=== PATIENT | male | born 1940 | race Hispanic/Latino ===

== ENCOUNTER 2017-12-22 12:30 | Emergency (ER) | payer OTHER, MEDICARE ==
[~2017-12-22 12:30] MED LIST: ALLO300T2 PO; AMLO10TA4 PO; ASPI-12 PO; BACL10TA PO; DOXA8TAB81 PO; ESOM40CA PO; LISI40TA4 PO; NAPR-1023 PO; ROSU10TA PO; TAMS-1 PO; TRAM50TA4 PO; [UNRECOGNIZED DRUG - OTHER]
[2017-12-22] MEDS ORDERED: ASPIRIN 325 MG TABLET ONE (12:51)
[2017-12-22 12:56] LABS: BASOPHILS % (AUTO) 0.7 % (0.0-5.0); EOSINOPHILS % (AUTO) 3.2 % (0.0-8.0); HEMATOCRIT 41.3 % (42-54); LYMPHOCYTES % (AUTO) 29.8 % (21.0-51.0); MEAN CORPUSCULAR HEMOGLOBIN 30.1 pg (27.0-33.0); MEAN CORPUSCULAR HGB CONC 33.7 g/dL (32.0-36.0); MEAN CORPUSCULAR VOLUME 89.3 fL (79-99); MONOCYTES % (AUTO) 13.7 % (3.0-13.0); NEUTROPHILS % (AUTO) 52.6 % (40.0-77.0); NUCLEATED RED BLOOD CELLS 0.1 % (0.0-0.19); PLATELET COUNT (AUTO) 135 K/uL (130-400); RED BLOOD CELL COUNT(AUTO) 4.63 MIL/uL (4.50-6.20); RED CELL DISTRIBUTION WIDTH 13.6 % (11.0-15.5); WHITE BLOOD COUNT (AUTO) 4.7 K/uL (4.8-10.8)
[2017-12-22 13:06] LABS: POTASSIUM 4.3 mmol/L (3.5-5.1)
[2017-12-22 13:10] LABS: INR 0.97 (0.85-1.15); PARTIAL THROMBOPLASTIN TIME 27.1 SEC (26.3-35.5); PROTHROMBIN TIME 10.2 SEC (9.6-11.6)
[2017-12-22 13:26] LABS: ALBUMIN 3.6 g/dL (3.5-5.0); BILIRUBIN,TOTAL 0.4 mg/dL (0.2-1.0); CREATINE KINASE MB 1.4 ng/mL (0.5-3.6); CREATININE 0.7 mg/dL (0.5-1.5); TOTAL PROTEIN, SERUM 6.7 g/dL (6.0-8.3)
[2018-04-26] MEDS ORDERED: AEC81 PO (19:00)
[2018-04-26] MEDS ORDERED: HYDR-4064 PO (19:00)
[2018-04-26] MEDS ORDERED: FAMO20TA8 PO (19:00)
[2018-04-26] MEDS ORDERED: BACL10TA PO (19:00)
== END 2017-12-22 18:26 | disposition home or self-care (01) ==
LOC: EDH 12:30
DX: R07.9 Chest pain, unspecified (principal); I25.10 Atherosclerotic heart disease of native coronary artery without angina pectoris; E78.5 Hyperlipidemia, unspecified; I10 Essential (primary) hypertension; Z88.5 Allergy status to narcotic agent; Z88.6 Allergy status to analgesic agent
CPT/HCPCS: 36415; 71045; 80053; 82550; 82553; 83874; 84484; 85025; 85610; 85730; 93005

== ENCOUNTER 2018-01-20 22:07 | Emergency (ER) | payer OTHER, MEDICARE ==
[2018-01-20 22:41] LABS: APPEARANCE,URINE Clear (CLEAR); BILIRUBIN,URINE Negative (NEGATIVE); COLOR,URINE Yellow (YELLOW); GLUCOSE, URINE (UA) Negative (NEGATIVE); KETONES,URINE 15 mg/dL (NEGATIVE); LEUKOCYTE ESTERASE ,URINE Trace (NEGATIVE); NITRATE,URINE Negative (NEGATIVE); OCCULT BLOOD,URINE Negative (NEGATIVE); PH,URINE 5.5 (5.0-8.0); PROTEIN,URINE Negative (NEGATIVE)
[2018-01-20 22:46] LABS: EOSINOPHILS % (AUTO) 3.8 % (0.0-8.0); HEMATOCRIT 42.8 % (42-54); LYMPHOCYTES % (AUTO) 28.5 % (21.0-51.0); MEAN CORPUSCULAR HEMOGLOBIN 30.2 pg (27.0-33.0); MEAN CORPUSCULAR HGB CONC 33.5 g/dL (32.0-36.0); MEAN CORPUSCULAR VOLUME 90.2 fL (79-99); MONOCYTES % (AUTO) 13.2 % (3.0-13.0); NEUTROPHILS % (AUTO) 53.5 % (40.0-77.0); NUCLEATED RED BLOOD CELLS 0.1 % (0.0-0.19); PLATELET COUNT (AUTO) 140 K/uL (130-400); RED BLOOD CELL COUNT(AUTO) 4.75 MIL/uL (4.50-6.20); WHITE BLOOD COUNT (AUTO) 4.9 K/uL (4.8-10.8)
[2018-01-20 22:54] LABS: POTASSIUM 4.1 mmol/L (3.5-5.1)
[2018-01-20 22:55] LABS: BACTERIA,URINE None Seen /HPF (None Seen); RBC,URINE 0-1 /HPF (0-1); SQUAMOUS EPITHELIAL CELL,UR Rare /HPF (0-2); WBC,URINE 0-1 /HPF (0-1)
[2018-01-20 22:58] LABS: ALBUMIN 3.9 g/dL (3.5-5.0); BILIRUBIN,TOTAL 0.6 mg/dL (0.2-1.0); TOTAL PROTEIN, SERUM 7.4 g/dL (6.0-8.3)
[2018-04-26] MEDS ORDERED: HYDR-4064 PO (19:00)
[2018-04-26] MEDS ORDERED: AEC81 PO (19:00)
[2018-04-26] MEDS ORDERED: BACL10TA PO (19:00)
[2018-04-26] MEDS ORDERED: FAMO20TA8 PO (19:00)
== END 2018-01-21 01:51 | disposition home or self-care (01) ==
LOC: EDH 22:07
DX: R10.31 Right lower quadrant pain (principal); R30.0 Dysuria; R19.7 Diarrhea, unspecified; I25.10 Atherosclerotic heart disease of native coronary artery without angina pectoris; E78.5 Hyperlipidemia, unspecified; I10 Essential (primary) hypertension; E11.9 Type 2 diabetes mellitus without complications; Z88.6 Allergy status to analgesic agent; Z98.890 Other specified postprocedural states
CPT/HCPCS: 36415; 74176; 80053; 81001; 85025; 93005

== ENCOUNTER 2018-03-23 21:14 | Emergency (ER) | payer OTHER, MEDICARE ==
[2018-03-23] MEDS ORDERED: HYDROCODONE/ACETAMINOPHEN 7.5/325 MG 15 ML UDCUP ONE (21:43)
[2018-03-23 21:46] LABS: BASOPHILS % (AUTO) 0.6 % (0.0-5.0); EOSINOPHILS % (AUTO) 4.1 % (0.0-8.0); HEMATOCRIT 39.2 % (42-54); MEAN CORPUSCULAR HEMOGLOBIN 31.3 pg (27.0-33.0); MEAN CORPUSCULAR HGB CONC 34.7 g/dL (32.0-36.0); MONOCYTES % (AUTO) 14.9 % (3.0-13.0); NEUTROPHILS % (AUTO) 56.4 % (40.0-77.0); NUCLEATED RED BLOOD CELLS 0.1 % (0.0-0.19); PLATELET COUNT (AUTO) 157 K/uL (130-400); RED BLOOD CELL COUNT(AUTO) 4.36 MIL/uL (4.50-6.20); RED CELL DISTRIBUTION WIDTH 13.8 % (11.0-15.5); WHITE BLOOD COUNT (AUTO) 5.2 K/uL (4.8-10.8)
[2018-03-23] MEDS ORDERED: ASPIRIN 325 MG TABLET ONE (21:50)
[2018-03-23 21:56] LABS: POTASSIUM 4.2 mmol/L (3.5-5.1)
[2018-03-23 21:58] LABS: INR 0.97 (0.85-1.15); PARTIAL THROMBOPLASTIN TIME 26.5 SEC (26.3-35.5); PROTHROMBIN TIME 10.2 SEC (9.6-11.6)
[2018-03-23 22:06] LABS: B-TYPE NATRIURETIC PEPTIDE 71 pg/mL (0-100)
[2018-03-23 22:10] LABS: ALBUMIN 3.7 g/dL (3.5-5.0); BILIRUBIN,TOTAL 0.4 mg/dL (0.2-1.0); CREATINE KINASE MB 2.4 ng/mL (0.5-3.6); TOTAL PROTEIN, SERUM 6.9 g/dL (6.0-8.3)
[2018-04-26] MEDS ORDERED: AEC81 PO (19:00)
[2018-04-26] MEDS ORDERED: BACL10TA PO (19:00)
[2018-04-26] MEDS ORDERED: FAMO20TA8 PO (19:00)
[2018-04-26] MEDS ORDERED: HYDR-4064 PO (19:00)
== END 2018-03-23 23:22 | disposition home or self-care (01) ==
LOC: EDH 21:14
DX: S20.211A Contusion of right front wall of thorax, initial encounter (principal); S80.01XA Contusion of right knee, initial encounter; R10.9 Unspecified abdominal pain; R07.9 Chest pain, unspecified; E11.9 Type 2 diabetes mellitus without complications; E78.5 Hyperlipidemia, unspecified; I10 Essential (primary) hypertension; I25.10 Atherosclerotic heart disease of native coronary artery without angina pectoris; Z88.6 Allergy status to analgesic agent; Z98.890 Other specified postprocedural states; W18.39XA Other fall on same level, initial encounter; Y93.01 Activity, walking, marching and hiking; Y92.89 Other specified places as the place of occurrence of the external cause; Y99.8 Other external cause status
CPT/HCPCS: 36415; 71045; 71250; 73562; 80053; 82550; 82553; 83874; 83880; 84484; 85025; 85610; 85730; 93005; 94761

== ENCOUNTER 2018-07-22 08:52 | Emergency (ER) | payer OTHER, MEDICARE ==
[~2018-07-22 08:52] MED LIST changes: +AEC81 PO; -AMLO10TA4 PO; -ASPI-12 PO; +FAMO20TA8 PO; +HYDR-4064 PO; -ROSU10TA PO; -TAMS-1 PO; -TRAM50TA4 PO; -[UNRECOGNIZED DRUG - OTHER]
[2018-07-22] MEDS ORDERED: ACETAMINOPHEN EXTRA STRENGTH 500 MG TABLET ONE (09:51)
== END 2018-07-22 10:03 | disposition home or self-care (01) ==
LOC: EDH 08:52
DX: S63.592A Other specified sprain of left wrist, initial encounter (principal); I25.10 Atherosclerotic heart disease of native coronary artery without angina pectoris; E11.9 Type 2 diabetes mellitus without complications; E78.5 Hyperlipidemia, unspecified; I10 Essential (primary) hypertension; Z98.890 Other specified postprocedural states; Z88.6 Allergy status to analgesic agent; W18.39XA Other fall on same level, initial encounter; Y93.89 Activity, other specified; Y92.89 Other specified places as the place of occurrence of the external cause; Y99.8 Other external cause status
CPT/HCPCS: 73110

== ENCOUNTER → 2018-09-09 | Outpatient (CLI) | payer OTHER, MEDICARE | END | disposition home or self-care (01) | LOC: RAH 12:07 | PROVIDERS: ATTEND Internal Medicine | DX: M41.85 Other forms of scoliosis, thoracolumbar region (principal) | CPT/HCPCS: 72100 ==

== ENCOUNTER → 2018-09-12 | Outpatient (CLI) | payer OTHER, MEDICARE | END | disposition home or self-care (01) | LOC: SHCH 07:51 | PROVIDERS: ATTEND Internal Medicine Cardiovascular Disease | DX: I35.1 Nonrheumatic aortic (valve) insufficiency (principal); I25.10 Atherosclerotic heart disease of native coronary artery without angina pectoris | CPT/HCPCS: 93306 ==

== ENCOUNTER 2018-10-28 10:16 | Emergency (ER) | payer OTHER, MEDICARE ==
[2018-10-28] MEDS ORDERED: KETOROLAC TROMETHAMINE 30MG/ML ONE (10:47)
[2018-10-28 10:48] LABS: BASOPHILS % (AUTO) 0.8 % (0.0-5.0); EOSINOPHILS % (AUTO) 2.5 % (0.0-8.0); HEMATOCRIT 41.5 % (42-54); LYMPHOCYTES % (AUTO) 23.1 % (21.0-51.0); MEAN CORPUSCULAR HEMOGLOBIN 29.7 pg (27.0-33.0); MEAN CORPUSCULAR HGB CONC 32.9 g/dL (32.0-36.0); MEAN CORPUSCULAR VOLUME 90.1 fL (79-99); MONOCYTES % (AUTO) 10.6 % (3.0-13.0); NUCLEATED RED BLOOD CELLS 0.1 % (0.0-0.19); PLATELET COUNT (AUTO) 124 K/uL (130-400); RED CELL DISTRIBUTION WIDTH 14.3 % (11.0-15.5); WHITE BLOOD COUNT (AUTO) 4.8 K/uL (4.8-10.8)
[2018-10-28 10:57] LABS: CREATININE 0.9 mg/dL (0.5-1.5); POTASSIUM 3.9 mmol/L (3.5-5.1)
[2018-10-28 10:58] LABS: ALBUMIN 3.2 g/dL (3.5-5.0); BILIRUBIN,TOTAL 0.6 mg/dL (0.2-1.0); TOTAL PROTEIN, SERUM 6.4 g/dL (6.0-8.3)
[2018-10-28 11:39] LABS: INR 0.96 (0.85-1.15); PARTIAL THROMBOPLASTIN TIME 29.5 SEC (26.3-35.5); PROTHROMBIN TIME 10.1 SEC (9.6-11.6)
== END 2018-10-28 13:06 | disposition home or self-care (01) ==
LOC: EDH 10:16
DX: M25.552 Pain in left hip (principal); I25.10 Atherosclerotic heart disease of native coronary artery without angina pectoris; E11.9 Type 2 diabetes mellitus without complications; E78.5 Hyperlipidemia, unspecified; I10 Essential (primary) hypertension; Z88.6 Allergy status to analgesic agent; Z88.5 Allergy status to narcotic agent
CPT/HCPCS: 36415; 72131; 73700; 80053; 84484; 85025; 85610; 85730; 93005; 96374; 99284; J1885

== ENCOUNTER 2019-02-14 07:41 | Day surgery (SDC) | payer OTHER, MEDICARE ==
[~2019-02-14] VITALS: Ht 165.1 cm; Wt 95.3 kg
[2019-02-14] MEDS ORDERED: SODIUM CHLORIDE 0.9% 1000ML 1,000 ML IV ONE (08:06)
[2019-02-14 08:29] VITALS: BP 126/65
[2019-02-14] MEDS ORDERED: FINA5TAB41 PO (08:38)
[2019-02-14] MEDS ORDERED: ROSU20TA30 PO (08:38)
[2019-02-14] MEDS ORDERED: SERT50TA12 PO (08:38)
[2019-02-14] MEDS ORDERED: HYDR12.530 PO (08:38)
[2019-02-14] MEDS ORDERED: ACET325C3 PO (08:38)
[2019-02-14] MEDS ORDERED: ROSU10TA27 PO (08:38)
[2019-02-14] MEDS ORDERED: PROPOFOL 10 MG/ML 20ML VIAL IV ONE (08:55)
[2019-02-14] MEDS ORDERED: LIDOCAINE HCL 1% 20 ML VIAL ONE (08:55)
[2019-02-14 09:04] VITALS: BP 100/73
[2019-02-14 09:09] VITALS: BP 96/48
[2019-02-14 09:14] VITALS: BP 109/46
[2019-02-14 09:20] VITALS: BP 107/55
[2019-02-14 09:30] VITALS: BP 134/83
== END 2019-02-14 09:48 | disposition home or self-care (01) ==
LOC: ENDO 07:41 → DAH 07:41 → ENDO 09:48
PROVIDERS: ATTEND Internal Medicine Gastroenterology
DX: K29.50 Unspecified chronic gastritis without bleeding (principal); K44.9 Diaphragmatic hernia without obstruction or gangrene; Z68.34 Body mass index [BMI] 34.0-34.9, adult; I10 Essential (primary) hypertension; E11.9 Type 2 diabetes mellitus without complications; F32.9 Major depressive disorder, single episode, unspecified; K21.9 Gastro-esophageal reflux disease without esophagitis; M81.0 Age-related osteoporosis without current pathological fracture; E78.5 Hyperlipidemia, unspecified; Z98.890 Other specified postprocedural states; Z95.1 Presence of aortocoronary bypass graft; Z83.3 Family history of diabetes mellitus; Z82.49 Family history of ischemic heart disease and other diseases of the circulatory system; Z88.8 Allergy status to other drugs, medicaments and biological substances; I44.5 Left posterior fascicular block
CPT/HCPCS: 43235; 82948 ×2; 93005; A4606; J2704; J7030

== ENCOUNTER → 2019-02-28 | Outpatient (CLI) | payer OTHER, MEDICARE ==
[~2019-02-28] MED LIST changes: +ACET325C3 PO; -FAMO20TA8 PO; +FINA5TAB41 PO; -HYDR-4064 PO; +HYDR12.530 PO; +ROSU10TA27 PO; +ROSU20TA30 PO; +SERT50TA12 PO
== END | disposition home or self-care (01) ==
LOC: RAH 08:03
PROVIDERS: ATTEND Internal Medicine Gastroenterology
DX: K21.9 Gastro-esophageal reflux disease without esophagitis (principal); K44.9 Diaphragmatic hernia without obstruction or gangrene; K57.10 Diverticulosis of small intestine without perforation or abscess without bleeding
CPT/HCPCS: 74240

== ENCOUNTER 2019-03-01 20:36 | Observation (INO) | payer OTHER, MEDICARE ==
[~2019-03-01] VITALS: Ht 162.6 cm; Wt 95.0 kg
[2019-03-01 21:16] LABS: BASOPHILS % (AUTO) 0.7 % (0.0-5.0); HEMATOCRIT 40.9 % (42-54); LYMPHOCYTES % (AUTO) 34.3 % (21.0-51.0); MEAN CORPUSCULAR HEMOGLOBIN 30.1 pg (27.0-33.0); MEAN CORPUSCULAR VOLUME 91.4 fL (79-99); PLATELET COUNT (AUTO) 126 K/uL (130-400); RED BLOOD CELL COUNT(AUTO) 4.47 MIL/uL (4.50-6.20); RED CELL DISTRIBUTION WIDTH 13.8 % (11.0-15.5); WHITE BLOOD COUNT (AUTO) 4.4 K/uL (4.8-10.8)
[2019-03-01 21:25] LABS: CREATININE 1.1 mg/dL (0.5-1.5)
[2019-03-01 21:29] LABS: ALBUMIN 3.6 g/dL (3.5-5.0); BILIRUBIN,TOTAL 0.5 mg/dL (0.2-1.0); TOTAL PROTEIN, SERUM 6.6 g/dL (6.0-8.3)
[2019-03-01 21:54] LABS: APPEARANCE,URINE Clear (CLEAR); BILIRUBIN,URINE Negative (NEGATIVE); COLOR,URINE Yellow (YELLOW); GLUCOSE, URINE (UA) Negative (NEGATIVE); KETONES,URINE Negative (NEGATIVE); LEUKOCYTE ESTERASE ,URINE Trace (NEGATIVE); NITRATE,URINE Negative (NEGATIVE); OCCULT BLOOD,URINE Negative (NEGATIVE); PROTEIN,URINE Negative (NEGATIVE)
[2019-03-01 22:00] LABS: BACTERIA,URINE Rare /HPF (None Seen); MUCUS,URINE Few LPF (None Seen); RBC,URINE None Seen /HPF (0-1); SQUAMOUS EPITHELIAL CELL,UR None Seen /HPF (0-2); WBC,URINE 0-1 /HPF (0-1)
[2019-03-02 03:10] VITALS: BP 148/66
--- NOTE | 2019-03-02 03:10 | NUR ---
ADMISSION NOTE: Admitted to floor via wheelchair, fully awake and responsive. Able to walk only for a short distance from bed to W/C or W/C to toilet. Oriented to room and use of call light. Policies and procedures explained and verbalized understanding. Placed in bed according to patient's comfort. Assessment done. VS checked and recorded. ( See flow chart) Plan of care initiated. Hooked to telemetry with result of Sinus Jorge, BBB 49 bpm. Home meds to bring by the daughter later this morning according to ER staff. Feels discomfort at his lower back , but tolerable. Monitored and kept watched for any unusualities. Needs attended and cared for. Endorsed to AM nurse accordingly.
[2019-03-02 03:15] LABS: CREATINE KINASE, TOTAL 130 U/L (21-232); MYOGLOBIN 50 ng/mL (10-92); TROPONIN I < 0.04 ng/mL (0.00-0.06)
[2019-03-02 05:33] LABS: HEMATOCRIT 39.8 % (42-54); MEAN CORPUSCULAR HEMOGLOBIN 30.8 pg (27.0-33.0); MEAN CORPUSCULAR HGB CONC 33.5 g/dL (32.0-36.0); MEAN CORPUSCULAR VOLUME 91.8 fL (79-99); PLATELET COUNT (AUTO) 113 K/uL (130-400); RED BLOOD CELL COUNT(AUTO) 4.34 MIL/uL (4.50-6.20); RED CELL DISTRIBUTION WIDTH 13.9 % (11.0-15.5); WHITE BLOOD COUNT (AUTO) 4.2 K/uL (4.8-10.8)
[2019-03-02 06:03] LABS: ALANINE AMINOTRANSFERASE 32 U/L (12-78); ALBUMIN 3.4 g/dL (3.5-5.0); ASPARTATE AMINOTRANSFERASE 28 U/L (10-37); BILIRUBIN,TOTAL 0.5 mg/dL (0.2-1.0); CARBON DIOXIDE 27 mmol/L (21-32); CHLORIDE 109 mmol/L (101-111); CREATINE KINASE, TOTAL 131 U/L (21-232); GLOMERULAR FILTR. RATE CALC 76 mL/min (>60); GLUCOSE,RANDOM 108 mg/dL (70-105); MYOGLOBIN 66 ng/mL (10-92); POTASSIUM 3.7 mmol/L (3.5-5.1); SODIUM SERUM 143 mmol/L (136-145); TOTAL PROTEIN, SERUM 6.2 g/dL (6.0-8.3); TROPONIN I < 0.04 ng/mL (0.00-0.06); UREA NITROGEN, BLOOD 15 mg/dL (7-18)
[2019-03-02 07:33] VITALS: BP 140/72
[2019-03-02 09:58] LABS: CREATINE KINASE, TOTAL 133 U/L (21-232); MYOGLOBIN 59 ng/mL (10-92); TROPONIN I < 0.04 ng/mL (0.00-0.06)
[2019-03-02 11:20] VITALS: BP 132/73
--- NOTE | 2019-03-02 13:21 | NUR ---
DCP CM met with pt discussed dc plans. Pt is independent prior to admission, lives at home with daughter. Has a cane. Denies any other equipments/services. Pt feels safe to go back home, daughter able to assist with transportation and needs. Offered possible short term rehab, pt declined, prefers to go back home. DC plan to home once stable. CM to cont to follow up. Addendum: 03/02/19 at 1322 by CONSTANTINO HELLER LVN CM Amended: Links added.
[2019-03-02] MEDS ORDERED: ACETAMINOPHEN 325 MG TAB PO PRN (15:45)
[2019-03-02] MEDS ORDERED: ACETAMINOPHEN 325 MG TAB ONE (15:45)
--- NOTE | 2019-03-02 16:51 | NUR ---
DISCHARGE INSTRUCTIONS GIVEN. IV DISCONTINUED WITH INNER CANNULA INTACT. INSTRUCTED DAUGHTER AND PATIENT TO FOLLOW UP WITH DR. BATRES TOMORROW AT OFFICE. ALL QUESTIONS ANSWERED.
== END 2019-03-02 16:35 | disposition home or self-care (01) ==
LOC: EDH 20:36 → EDHIP 03-02 00:30 → 3BH 03-02 02:43
PROVIDERS: ADMIT Internal Medicine; ATTEND Internal Medicine
DX: R55 Syncope and collapse (principal); R00.1 Bradycardia, unspecified; M54.2 Cervicalgia; G89.29 Other chronic pain; E11.9 Type 2 diabetes mellitus without complications; E78.5 Hyperlipidemia, unspecified; I10 Essential (primary) hypertension; I25.10 Atherosclerotic heart disease of native coronary artery without angina pectoris; Z95.1 Presence of aortocoronary bypass graft
CPT/HCPCS: 36415 ×2; 70450; 71045; 72125; 80053 ×2; 81001; 82550 ×3; 82948 ×2; 83874 ×3; 84484 ×4; 85025; 85027; 93005; 99284; G0378 ×16

== ENCOUNTER 2019-08-16 13:02 | Emergency (ER) | payer OTHER, MEDICARE ==
[2019-08-16 13:19] LABS: BASOPHILS % (AUTO) 0.6 % (0.0-5.0); EOSINOPHILS % (AUTO) 1.5 % (0.0-8.0); HEMATOCRIT 44.2 % (42-54); MEAN CORPUSCULAR HEMOGLOBIN 30.8 pg (27.0-33.0); MEAN CORPUSCULAR HGB CONC 33.7 g/dL (32.0-36.0); MEAN CORPUSCULAR VOLUME 91.7 fL (79-99); MONOCYTES % (AUTO) 10.3 % (3.0-13.0); NEUTROPHILS % (AUTO) 59.6 % (40.0-77.0); PLATELET COUNT (AUTO) 128 K/uL (130-400); RED BLOOD CELL COUNT(AUTO) 4.82 MIL/uL (4.50-6.20); RED CELL DISTRIBUTION WIDTH 13.6 % (11.0-15.5); WHITE BLOOD COUNT (AUTO) 4.9 K/uL (4.8-10.8)
[2019-08-16 13:36] LABS: CREATININE 1.1 mg/dL (0.5-1.5); POTASSIUM 4.1 mmol/L (3.5-5.1)
[2019-08-16 13:41] LABS: ALBUMIN 4.1 g/dL (3.5-5.0); BILIRUBIN,TOTAL 0.7 mg/dL (0.2-1.0); TOTAL PROTEIN, SERUM 7.7 g/dL (6.0-8.3)
[2019-08-16] MEDS ORDERED: MECLIZINE HCL 25 MG TABLET ONE (13:54)
[2019-08-16] MEDS ORDERED: SODIUM CHLORIDE 0.9% 1000ML 1,000 ML IV ONE (13:54)
== END 2019-08-16 16:12 | disposition home or self-care (01) ==
LOC: EDH 13:02
DX: R42 Dizziness and giddiness (principal); R53.1 Weakness; E78.5 Hyperlipidemia, unspecified; I10 Essential (primary) hypertension; I25.10 Atherosclerotic heart disease of native coronary artery without angina pectoris; Z95.1 Presence of aortocoronary bypass graft; Z88.6 Allergy status to analgesic agent; Z87.891 Personal history of nicotine dependence; Z98.890 Other specified postprocedural states
CPT/HCPCS: 36415; 70450; 73221; 80053; 82948; 84484; 85025; 93005; 96360; 99285; J7030

== ENCOUNTER → 2019-08-16 | Outpatient (CLI) | payer OTHER, MEDICARE ==
[~2019-08-16] MED LIST changes: -ROSU10TA27 PO; +ROSU10TA28 PO; -ROSU20TA30 PO; +ROSU20TA31 PO
== END | disposition home or self-care (01) ==
LOC: RAH 10:40
PROVIDERS: ATTEND Orthopaedic Surgery
DX: M75.102 Unspecified rotator cuff tear or rupture of left shoulder, not specified as traumatic (principal); M19.012 Primary osteoarthritis, left shoulder; M25.412 Effusion, left shoulder; M75.42 Impingement syndrome of left shoulder
CPT/HCPCS: 73221

== ENCOUNTER 2022-01-11 11:42 | Emergency (ER) | payer OTHER, MEDICARE ==
[~2022-01-11] VITALS: Ht 162.6 cm; Wt 93.9 kg
[~2022-01-11 11:42] MED LIST changes: -LISI40TA4 PO; +LISI40TA9 PO; +SERT-439 PO; -SERT50TA12 PO
[2022-01-11 12:01] VITALS: BP 102/54
[2022-01-11 12:22] LABS: BASOPHILS % (AUTO) 0.4 % (0.0-5.0); EOSINOPHILS % (AUTO) 0.2 % (0.0-8.0); MEAN CORPUSCULAR HEMOGLOBIN 29.9 pg (27.0-33.0); MEAN CORPUSCULAR HGB CONC 32.8 g/dL (32.0-36.0); MEAN CORPUSCULAR VOLUME 91.1 fL (79-99); MONOCYTES % (AUTO) 8.2 % (3.0-13.0); NEUTROPHILS % (AUTO) 78.8 % (40.0-77.0); PLATELET COUNT (AUTO) 130 K/uL (130-400); RED BLOOD CELL COUNT(AUTO) 5.05 MIL/uL (4.50-6.20); RED CELL DISTRIBUTION WIDTH 13.5 % (11.0-15.5); WHITE BLOOD COUNT (AUTO) 5.5 K/uL (4.8-10.8)
[2022-01-11 12:30] LABS: ALBUMIN 3.7 g/dL (3.5-5.0); BILIRUBIN,TOTAL 0.8 mg/dL (0.2-1.0)
[2022-01-11] MEDS ORDERED: DiphenhydrAMINE HCL 50 MG/ML VIAL IV ONE (12:30)
[2022-01-11] MEDS ORDERED: 0.9%NACL 1000ML 1,000 ML IV ONE (12:30)
[2022-01-11] MEDS ORDERED: METOCLOPRAMIDE 10 MG/2 ML VIAL IVP ONE (12:30)
[2022-01-11] MEDS ORDERED: DiphenhydrAMINE HCL 50 MG/ML VIAL ONE (13:56)
[2022-01-11] MEDS ORDERED: METOCLOPRAMIDE 10 MG/2 ML VIAL ONE (13:56)
[2022-01-11] MEDS ORDERED: AMOX1TAB16 PO (14:16)
== END 2022-01-11 14:30 | disposition home or self-care (01) ==
LOC: EDH 11:42
DX: J01.30 Acute sphenoidal sinusitis, unspecified (principal); Z20.822 Contact with and (suspected) exposure to COVID-19; E11.9 Type 2 diabetes mellitus without complications; E78.00 Pure hypercholesterolemia, unspecified; I10 Essential (primary) hypertension; Z88.6 Allergy status to analgesic agent; Z88.5 Allergy status to narcotic agent; Z79.899 Other long term (current) drug therapy; Z79.82 Long term (current) use of aspirin; Z98.890 Other specified postprocedural states
CPT/HCPCS: 36415; 70450; 80053; 84484; 85025; 85651; 87635; 87804 ×2; 93005; 96361; 96374; 96375; 99285; C9803; J1200; J2765; J7030

== ENCOUNTER 2022-07-20 16:21 | Emergency (ER) | payer OTHER, MEDICARE ==
[~2022-07-20] VITALS: Ht 162.6 cm; Wt 93.0 kg
[~2022-07-20 16:21] MED LIST changes: +AMOX1TAB16 PO
[2022-07-20 17:28] LABS: BASOPHILS % (AUTO) 0.4 % (0.0-5.0); EOSINOPHILS % (AUTO) 1.1 % (0.0-8.0); HEMATOCRIT 44.3 % (42-54); LYMPHOCYTES % (AUTO) 15.6 % (21.0-51.0); MEAN CORPUSCULAR HEMOGLOBIN 30.8 pg (27.0-33.0); MEAN CORPUSCULAR HGB CONC 33.4 g/dL (32.0-36.0); MEAN CORPUSCULAR VOLUME 92.3 fL (79-99); MONOCYTES % (AUTO) 13.3 % (3.0-13.0); NEUTROPHILS % (AUTO) 69.4 % (40.0-77.0); PLATELET COUNT (AUTO) 133 K/uL (130-400); RED CELL DISTRIBUTION WIDTH 13.3 % (11.0-15.5); WHITE BLOOD COUNT (AUTO) 5.7 K/uL (4.8-10.8)
[2022-07-20 17:35] LABS: CREATININE 1.2 mg/dL (0.5-1.5); POTASSIUM 4.2 mmol/L (3.5-5.1)
[2022-07-20 17:42] LABS: TOTAL PROTEIN, SERUM 7.4 g/dL (6.0-8.3)
[2022-07-20 19:32] VITALS: BP 149/73
[2022-07-20] MEDS ORDERED: KETOROLAC 15MG/ML VIAL (15MG/ML) IV ONE (20:00)
[2022-07-20 20:21] LABS: APPEARANCE,URINE CLEAR (CLEAR); BILIRUBIN,URINE NEGATIVE (NEGATIVE); COLOR,URINE YELLOW (YELLOW); GLUCOSE, URINE (UA) NEGATIVE (NEGATIVE); KETONES,URINE 10 mg/dL (NEGATIVE); LEUKOCYTE ESTERASE ,URINE NEGATIVE Leu/uL (NEGATIVE); NITRATE,URINE NEGATIVE (NEGATIVE); OCCULT BLOOD,URINE NEGATIVE (NEGATIVE); PH,URINE 5.5 (5.0-8.0); PROTEIN,URINE 30 mg/dL (NEGATIVE); UROBILINOGEN,URINE 0.2 mg/dL (0.2-1.0)
[2022-07-20 21:00] LABS: BACTERIA,URINE RARE /HPF (None Seen); MUCUS,URINE MOD LPF (None Seen); WBC,URINE 0-1 /HPF (0-1)
[2022-07-20] MEDS ORDERED: TIZA2CAP PO (21:29)
[2022-07-20] MEDS ORDERED: CYCLOBENZAPRINE HCL 10 MG TABLET PO ONE (21:30)
[2022-07-20] MEDS ORDERED: CYCLOBENZAPRINE HCL 10 MG TABLET ONE (21:36)
== END 2022-07-20 21:44 | disposition home or self-care (01) ==
LOC: EDH 16:21
DX: S16.1XXA Strain of muscle, fascia and tendon at neck level, initial encounter (principal); Z20.822 Contact with and (suspected) exposure to COVID-19; E11.9 Type 2 diabetes mellitus without complications; E78.00 Pure hypercholesterolemia, unspecified; I10 Essential (primary) hypertension; Z88.6 Allergy status to analgesic agent; Z88.5 Allergy status to narcotic agent; Z79.899 Other long term (current) drug therapy; Z79.82 Long term (current) use of aspirin; Z98.890 Other specified postprocedural states; X58.XXXA Exposure to other specified factors, initial encounter; Y93.89 Activity, other specified; Y92.89 Other specified places as the place of occurrence of the external cause; Y99.8 Other external cause status
CPT/HCPCS: 99285; 96374; 70450; 71045; 87635; 84484; 80053; 85025; 87804 ×2; 81001; 36415; 93005 ×2; C9803; J1885

== ENCOUNTER → 2023-01-13 | Outpatient (CLI) | payer OTHER, MEDICARE ==
[~2023-01-13] MED LIST changes: +TIZA2CAP PO
[2023-01-13 12:35] LABS: BASOPHILS % (AUTO) 0.6 % (0.0-5.0); EOSINOPHILS % (AUTO) 2.7 % (0.0-8.0); HEMATOCRIT 46.9 % (42-54); LYMPHOCYTES % (AUTO) 19.6 % (21.0-51.0); MEAN CORPUSCULAR HEMOGLOBIN 30.3 pg (27.0-33.0); MEAN CORPUSCULAR VOLUME 91.8 fL (79-99); MONOCYTES % (AUTO) 11.9 % (3.0-13.0); NEUTROPHILS % (AUTO) 64.9 % (40.0-77.0); PLATELET COUNT (AUTO) 128 K/uL (130-400); RED BLOOD CELL COUNT(AUTO) 5.11 MIL/uL (4.50-6.20); RED CELL DISTRIBUTION WIDTH 13.6 % (11.0-15.5); WHITE BLOOD COUNT (AUTO) 6.6 K/uL (4.8-10.8)
[2023-01-13 13:20] LABS: CREATININE 1.4 mg/dL (0.5-1.5); T4 (THYROXINE) 8.6 ug/dL (4.7-13.3); THYROID STIMULATING HORMONE 2.93 uIU/mL (0.36-3.74)
== END | disposition home or self-care (01) ==
LOC: LAB 10:15
PROVIDERS: ATTEND Internal Medicine Cardiovascular Disease
DX: I10 Essential (primary) hypertension (principal); I25.10 Atherosclerotic heart disease of native coronary artery without angina pectoris; E78.5 Hyperlipidemia, unspecified
CPT/HCPCS: 36415; 80048; 83735; 83880; 84436; 84443; 84479; 85025

== ENCOUNTER → 2023-01-29 | Outpatient (CLI) | payer OTHER, MEDICARE | END | disposition home or self-care (01) | LOC: SLP 19:57 | PROVIDERS: ATTEND Internal Medicine Cardiovascular Disease | DX: G47.33 Obstructive sleep apnea (adult) (pediatric) (principal) | CPT/HCPCS: 95810 ==

== ENCOUNTER → 2023-02-16 | Outpatient (CLI) | payer OTHER, MEDICARE | END | disposition home or self-care (01) | LOC: SLP 20:16 | PROVIDERS: ATTEND Internal Medicine Cardiovascular Disease | DX: G47.33 Obstructive sleep apnea (adult) (pediatric) (principal) | CPT/HCPCS: 95811 ==

== ENCOUNTER → 2023-11-25 | Outpatient (CLI) | payer OTHER, MEDICARE ==
[~2023-11-25] MED LIST changes: -AMOX1TAB16 PO; -BACL10TA PO; +BACL5TAB PO; +CARAL PO; -ESOM40CA PO; +FURO20TA4 PO; -HYDR12.530 PO; -LISI40TA9 PO; +MAGN120C3 PO; +OMEP40CA21 PO; +POTA10CA85 PO; -ROSU10TA28 PO; -ROSU20TA31 PO; +ROSU20TA73 PO; -TIZA2CAP PO
== END | disposition home or self-care (01) ==
LOC: RAH 09:07
PROVIDERS: ATTEND Surgery
DX: K21.9 Gastro-esophageal reflux disease without esophagitis (principal); K44.9 Diaphragmatic hernia without obstruction or gangrene
CPT/HCPCS: 36415; 74240; 82565; 84520

== ENCOUNTER → 2023-11-30 | Outpatient (CLI) | payer OTHER, MEDICARE ==
[~2023-11-30] MED LIST changes: +IOHEXOL 350 MG/ML 100ML INFUS..BTL IV ONE
== END | disposition home or self-care (01) ==
LOC: RAH 08:37
PROVIDERS: ATTEND Surgery
DX: K57.30 Diverticulosis of large intestine without perforation or abscess without bleeding (principal); K21.9 Gastro-esophageal reflux disease without esophagitis; K44.9 Diaphragmatic hernia without obstruction or gangrene; Z90.49 Acquired absence of other specified parts of digestive tract
CPT/HCPCS: 74177; Q9967

== ENCOUNTER → 2024-01-12 | Outpatient (CLI) | payer OTHER, MEDICARE ==
[~2024-01-12] MED LIST changes: +FAMO40TA7 PO; -IOHEXOL 350 MG/ML 100ML INFUS..BTL IV ONE; +LISI10TA24 PO; +MAGNESIUM PO; +NITR100C PO; +PANT40TA54 PO; +POTASSIUM PO; +RANO500T6 PO
== END | disposition home or self-care (01) ==
LOC: SHCH 13:15
PROVIDERS: ATTEND Internal Medicine Cardiovascular Disease
DX: I35.1 Nonrheumatic aortic (valve) insufficiency (principal); I49.3 Ventricular premature depolarization; I95.2 Hypotension due to drugs
CPT/HCPCS: 93306

== ENCOUNTER 2024-01-25 05:38 | Observation (INO) | payer OTHER, MEDICARE ==
[2024-01-18 13:37] LABS: BASOPHILS # (AUTO) 0.03 K/uL (0.00-0.20); BASOPHILS % (AUTO) 0.7 % (0.0-5.0); EOSINOPHILS # (AUTO) 0.17 K/uL (0.00-0.70); EOSINOPHILS % (AUTO) 3.8 % (0.0-8.0); HEMATOCRIT 47.2 % (42-54); IMMATURE GRANULOCYTE ABSOLUTE 0.01 K/uL (0-1); LYMPHOCYTES # (AUTO) 1.2 K/uL (1.0-4.8); LYMPHOCYTES % (AUTO) 27.1 % (21.0-51.0); MEAN CORPUSCULAR HGB CONC 32.4 g/dL (32.0-36.0); MEAN CORPUSCULAR VOLUME 95.7 fL (79-99); MONOCYTES # (AUTO) 0.6 K/uL (0.1-1.0); MONOCYTES % (AUTO) 12.3 % (3.0-13.0); NEUTROPHILS # (AUTO) 2.5 K/uL (1.8-7.7); NEUTROPHILS % (AUTO) 55.9 % (40.0-77.0); PLATELET COUNT (AUTO) 134 K/uL (130-400); RED BLOOD CELL COUNT(AUTO) 4.93 MIL/uL (4.50-6.20); RED CELL DISTRIBUTION WIDTH 12.8 % (11.0-15.5); WHITE BLOOD COUNT (AUTO) 4.5 K/uL (4.8-10.8)
[2024-01-18 13:50] LABS: CREATININE 1.1 mg/dL (0.5-1.3); POTASSIUM 4.9 mmol/L (3.5-5.1)
[2024-01-18 13:57] VITALS: BP 166/78; PULSE 59; RESP 15
[~2024-01-25] VITALS: Ht 162.6 cm; Wt 88.0 kg
[2024-01-25] VITALS (27 sets, daily range): BP systolic 135–174; BP diastolic 54–93; PULSE 54–63; RESP 15–20; O2SAT 99
[~2024-01-25 05:38] MED LIST changes: -ACET325C3 PO; -BACL5TAB PO; -CARAL PO; -MAGN120C3 PO; -NAPR-1023 PO; -OMEP40CA21 PO; -POTA10CA85 PO
[2024-01-25] MEDS ORDERED: PROPOFOL 10 MG/ML 20ML VIAL IV ONE (07:14)
[2024-01-25] MEDS ORDERED: GLYCOPYRROLATE 0.2 MG/ML 5 ML VIAL ONE ×2 (07:14→09:13)
[2024-01-25] MEDS ORDERED: ROCURONIUM BROMIDE 10MG/1ML 5ML VL ONE ×3 (07:14→11:48)
[2024-01-25] MEDS ORDERED: LIDOCAINE PF 100MG/5ML (2%) SYRINGE 5ML ONE (07:14)
[2024-01-25] MEDS ORDERED: FENTANYL CITRATE PF 50 MCG/1 ML 2ML VIAL ONE (07:15)
[2024-01-25] MEDS ORDERED: SUCCINYLCHOLINE CHLORIDE 20 MG/ML 10 ML VIAL ONE (07:15)
[2024-01-25] MEDS: SUGAMMADEX SODIUM 200 MG/2 ML VIAL IV ONE (07:28)
[2024-01-25] MEDS: 0.9%NACL 1000ML 1,000 ML IV ONE (07:33)
[2024-01-25] MEDS: CEFAZOLIN SODIUM 2 GM VIAL ONE (07:33)
[2024-01-25] MEDS ORDERED: MIDAZOLAM HCL 1 MG/ML 2ML VIAL ONE (08:12)
[2024-01-25] MEDS ORDERED: ATROPINE 1MG SYG IVP ONE (08:19)
[2024-01-25] MEDS: BUPIVACAINE/PF 0.25% 30ML VIAL IJ ONE (09:05)
[2024-01-25] MEDS ORDERED: NOREPINEPHRINE BITARTRATE 1 MG/1 ML ML IV ONE (09:06)
[2024-01-25] MEDS ORDERED: EPHEDRINE SULFATE 50 MG/ML AMPULE ONE (09:16)
[2024-01-25 09:23] LABS: ABG BASE EXCESS -5.9 mmol/L (-2.0-3.0); ABG HCO3 20.4 mmol/L (21.0-28.0); ABG OXYGEN SATURATION 99.7 % (95.0-99.0); ABG PCO2 43 mmHg (35-48); ABG PH 7.293 (7.35-7.450); CARBON MONOXIDE 0.3; HHb 0.3; PO2, ARTERIAL BG 426.6 mmHg (83.0-108.0); VENT MODE, BG ANT VENT (ROOM AIR)
[2024-01-25] MEDS ORDERED: SODIUM BICARB 50MEQ 50ML VIAL 250 ML ONE (09:28)
[2024-01-25 11:47] LABS: ABG BASE EXCESS -1.2 mmol/L (-2.0-3.0); ABG HCO3 26.9 mmol/L (21.0-28.0); ABG OXYGEN SATURATION 99.5 % (95.0-99.0); ABG PCO2 60 mmHg (35-48); ABG PH 7.269 (7.35-7.450); CARBON MONOXIDE 0.3; HHb 0.5; PO2, ARTERIAL BG 430.4 mmHg (83.0-108.0); VENT MODE, BG ANT VENT (ROOM AIR)
[2024-01-25] MEDS ORDERED: CEFAZOLIN SODIUM 1 GM VIAL ONE (12:16)
[2024-01-25] MEDS ORDERED: EPINEPHRINE PF 1MG (1:1,000) 1 MG/ML AMP ONE (12:16)
[2024-01-25] MEDS ORDERED: PROCHLORPERAZINE 10MG/2ML INJ IV PRN (13:00)
[2024-01-25] MEDS ORDERED: MORPHINE 4 MG SYG IVP PRN (13:00)
[2024-01-25] MEDS ORDERED: LABETALOL 20MG SYG IV PRN (13:00)
[2024-01-25] MEDS: INSULIN HUMULIN R 100 UNIT/ML 3ML SQ SCH (16:30)
[2024-01-25] MEDS: LACTATED RINGERS 1000ML 1,000 ML IV SCH (18:00)
[2024-01-25] MEDS: HYDROMORPHONE 1 MG INJ ONE (20:01)
[2024-01-25] MEDS: FAMOTIDINE 20MG VIAL IV ONE (20:01)
[2024-01-25] MEDS: ENOXAPARIN SODIUM 30 MG/0.3 ML SQ SCH (20:16)
[2024-01-25] MEDS: ONDANSETRON 4MG INJ IVP PRN (20:19)
[2024-01-26] VITALS (9 sets, daily range): BP systolic 142–181; BP diastolic 68–94; PULSE 57–63; RESP 18–21; O2SAT 95–96
[2024-01-26] MEDS: HYDROCODONE/ACETAMINOPHEN 7.5/325 MG 15 ML UDCUP PO PRN (02:26)
[2024-01-26] MEDS ORDERED: NITROFURANTOIN MISC SCH ×2 (09:00→11:30)
[2024-01-26] MEDS ORDERED: NON-FORMULARY MEDICATION 1 EACH (Famotidine 1 TAB) PO SCH (09:00)
[2024-01-26] MEDS ORDERED: NITROFURANTOIN MACROCRYSTAL 100 MG PO SCH (09:00)
[2024-01-26] MEDS: PANTOPRAZOLE 40 MG TAB DR PO SCH (09:46)
[2024-01-26] MEDS: MAGNESIUM OXIDE 400 MG TABLET PO SCH (09:46)
[2024-01-26] MEDS: FUROSEMIDE 20 MG TABLET PO SCH (09:46)
[2024-01-26] MEDS: RANOLAZINE 500 MG TAB.SR.12H PO SCH (09:47)
[2024-01-26] MEDS: ASPIRIN 81 MG EC TAB PO SCH (09:47)
[2024-01-26] MEDS: SERTRALINE HCL 50 MG TABLET PO SCH (09:47)
[2024-01-26] MEDS: FINASTERIDE 5 MG TABLET PO SCH (09:47)
[2024-01-26] MEDS: ALLOPURINOL 300 MG TABLET PO SCH (09:47)
[2024-01-26] MEDS: LISINOPRIL 10 MG TABLET PO SCH (09:47)
[2024-01-26] MEDS: DOXAZOSIN MESYLATE 2 MG TABLET PO SCH (09:48)
[2024-01-26] MEDS: POTASSIUM CHLORIDE 10MEQ SR TAB PO SCH (09:50)
[2024-01-26] MEDS: KETOROLAC 15MG/ML VIAL (15MG/ML) IV PRN (11:13)
[2024-01-26] MEDS: IPRATROPIUM/ALBUTEROL SULFATE 3 ML SOLUTION IH SCH (12:00)
[2024-01-26 17:13] LABS: BASOPHILS # (AUTO) 0.02 K/uL (0.00-0.20); BASOPHILS % (AUTO) 0.3 % (0.0-5.0); HEMATOCRIT 40.7 % (42-54); IMMATURE GRANULOCYTE ABSOLUTE 0.03 K/uL (0-1); LYMPHOCYTES # (AUTO) 0.6 K/uL (1.0-4.8); LYMPHOCYTES % (AUTO) 8.2 % (21.0-51.0); MEAN CORPUSCULAR HEMOGLOBIN 31.2 pg (27.0-33.0); MEAN CORPUSCULAR HGB CONC 32.7 g/dL (32.0-36.0); MEAN CORPUSCULAR VOLUME 95.5 fL (79-99); MONOCYTES # (AUTO) 0.6 K/uL (0.1-1.0); MONOCYTES % (AUTO) 8.7 % (3.0-13.0); NEUTROPHILS # (AUTO) 5.7 K/uL (1.8-7.7); NEUTROPHILS % (AUTO) 82.4 % (40.0-77.0); PLATELET COUNT (AUTO) 102 K/uL (130-400); RED BLOOD CELL COUNT(AUTO) 4.26 MIL/uL (4.50-6.20); RED CELL DISTRIBUTION WIDTH 12.6 % (11.0-15.5); WHITE BLOOD COUNT (AUTO) 6.9 K/uL (4.8-10.8)
[2024-01-26 17:23] LABS: POTASSIUM 4.3 mmol/L (3.5-5.1)
[2024-01-26 17:30] LABS: ALBUMIN 3.3 g/dL (3.5-5.0); TOTAL PROTEIN, SERUM 6.5 g/dL (6.0-8.3)
[2024-01-26 17:35] LABS: WBC MORPHOLOGY CONSISTENT W/DIFF
[2024-01-27] VITALS (7 sets, daily range): BP systolic 121–152; BP diastolic 69–76; PULSE 54–67; RESP 18–20; O2SAT 93–95
[2024-01-27 05:11] LABS: BASOPHILS # (AUTO) 0.03 K/uL (0.00-0.20); BASOPHILS % (AUTO) 0.5 % (0.0-5.0); EOSINOPHILS # (AUTO) 0.05 K/uL (0.00-0.70); EOSINOPHILS % (AUTO) 0.8 % (0.0-8.0); HEMATOCRIT 37.7 % (42-54); IMMATURE GRANULOCYTE ABSOLUTE 0.03 K/uL (0-1); LYMPHOCYTES # (AUTO) 0.6 K/uL (1.0-4.8); LYMPHOCYTES % (AUTO) 10.2 % (21.0-51.0); MEAN CORPUSCULAR HEMOGLOBIN 31.5 pg (27.0-33.0); MEAN CORPUSCULAR HGB CONC 32.4 g/dL (32.0-36.0); MEAN CORPUSCULAR VOLUME 97.4 fL (79-99); MONOCYTES # (AUTO) 0.7 K/uL (0.1-1.0); MONOCYTES % (AUTO) 10.7 % (3.0-13.0); NEUTROPHILS # (AUTO) 4.9 K/uL (1.8-7.7); NEUTROPHILS % (AUTO) 77.3 % (40.0-77.0); PLATELET COUNT (AUTO) 98 K/uL (130-400); RED BLOOD CELL COUNT(AUTO) 3.87 MIL/uL (4.50-6.20); RED CELL DISTRIBUTION WIDTH 12.6 % (11.0-15.5); WHITE BLOOD COUNT (AUTO) 6.3 K/uL (4.8-10.8)
[2024-01-27 05:23] LABS: ALBUMIN 2.9 g/dL (3.5-5.0); CREATININE 0.9 mg/dL (0.5-1.3); POTASSIUM 3.5 mmol/L (3.5-5.1); TOTAL PROTEIN, SERUM 5.9 g/dL (6.0-8.3)
== END 2024-01-27 12:30 | disposition home or self-care (01) ==
LOC: DAH 05:38 → INTOOBSV 05:39 → DAHIP 05:39 → DAH 05:39 → DAHIP 13:01 → 4AH 14:23
PROVIDERS: ADMIT Surgery; ATTEND Surgery
DX: K44.9 Diaphragmatic hernia without obstruction or gangrene (principal); K21.9 Gastro-esophageal reflux disease without esophagitis; I25.10 Atherosclerotic heart disease of native coronary artery without angina pectoris; I10 Essential (primary) hypertension; I51.9 Heart disease, unspecified; E11.9 Type 2 diabetes mellitus without complications; E78.5 Hyperlipidemia, unspecified; M10.9 Gout, unspecified; I48.0 Paroxysmal atrial fibrillation; M81.0 Age-related osteoporosis without current pathological fracture; Z79.899 Other long term (current) drug therapy
CPT/HCPCS: 80048; 85025 ×3; 86850 ×2; 86900 ×2; 86901 ×2; 36415 ×4; 93005; 43280; 96374; 96372 ×3; 82435 ×2; 82947 ×2; 84132 ×2; 84295 ×2; 82803 ×2; 85018 ×2; 82948 ×10; 83605 ×2; 71045; 96376; 96375; 80053 ×2; 71046; 97161; 97116; 94640 ×4; 94664; A6260; A4663; J7030 ×2; A4215 ×2; C1729; J3490 ×9; J3010; J0690 ×2; J1170; J0330; J0665; J2001; J0171; J1650 ×3; J0461; J2250; J2704; J2405; G0168; A4649 ×3; A4930; A4223; A4222; A4221; A4600; G0378 ×21; J1885 ×2; 43235

== ENCOUNTER → 2024-03-13 | Outpatient (CLI) | payer OTHER, MEDICARE ==
[2024-03-13 16:47] LABS: CREATININE 0.8 mg/dL (0.5-1.3); MAGNESIUM 1.6 mg/dL (1.80-2.40); POTASSIUM 3.7 mmol/L (3.5-5.1)
== END | disposition home or self-care (01) ==
LOC: LAB 12:51
PROVIDERS: ATTEND Internal Medicine Cardiovascular Disease
DX: I49.3 Ventricular premature depolarization (principal)
CPT/HCPCS: 36415; 80048; 83735; 83880

== ENCOUNTER 2024-05-17 10:35 | Emergency (ER) | payer OTHER, MEDICARE ==
[~2024-05-17] VITALS: Ht 162.6 cm; Wt 83.0 kg
[2024-05-17 10:56] LABS: BASOPHILS # (AUTO) 0.02 K/uL (0.00-0.20); BASOPHILS % (AUTO) 0.4 % (0.0-5.0); EOSINOPHILS # (AUTO) 0.18 K/uL (0.00-0.70); EOSINOPHILS % (AUTO) 3.4 % (0.0-8.0); HEMATOCRIT 41.8 % (42-54); IMMATURE GRANULOCYTE ABSOLUTE 0.01 K/uL (0-1); LYMPHOCYTES # (AUTO) 1.2 K/uL (1.0-4.8); LYMPHOCYTES % (AUTO) 22.6 % (21.0-51.0); MEAN CORPUSCULAR HEMOGLOBIN 30.6 pg (27.0-33.0); MEAN CORPUSCULAR HGB CONC 33.5 g/dL (32.0-36.0); MEAN CORPUSCULAR VOLUME 91.3 fL (79-99); MONOCYTES # (AUTO) 0.6 K/uL (0.1-1.0); MONOCYTES % (AUTO) 12.2 % (3.0-13.0); NEUTROPHILS # (AUTO) 3.2 K/uL (1.8-7.7); NEUTROPHILS % (AUTO) 61.2 % (40.0-77.0); PLATELET COUNT (AUTO) 122 K/uL (130-400); RED BLOOD CELL COUNT(AUTO) 4.58 MIL/uL (4.50-6.20); RED CELL DISTRIBUTION WIDTH 12.6 % (11.0-15.5); WHITE BLOOD COUNT (AUTO) 5.3 K/uL (4.8-10.8)
[2024-05-17 11:04] LABS: CREATININE 0.9 mg/dL (0.5-1.3); POTASSIUM 4.6 mmol/L (3.5-5.1)
[2024-05-17 11:09] LABS: ALBUMIN 3.3 g/dL (3.5-5.0); BILIRUBIN,TOTAL 0.9 mg/dL (0.2-1.0); TOTAL PROTEIN, SERUM 6.9 g/dL (6.0-8.3)
[2024-05-17 11:34] LABS: B-TYPE NATRIURETIC PEPTIDE 190 pg/mL (0-100)
[2024-05-17] MEDS: KETOROLAC 15MG/ML VIAL (15MG/ML) IM ONE (11:38)
[2024-05-17 14:56] LABS: ADD UA MICROSCOPIC YES; APPEARANCE,URINE TURBID (CLEAR); BILIRUBIN,URINE NEGATIVE (NEGATIVE); COLOR,URINE ORANGE (YELLOW); GLUCOSE, URINE (UA) NEGATIVE (NEGATIVE); KETONES,URINE NEGATIVE (NEGATIVE); LEUKOCYTE ESTERASE ,URINE 25 Leu/uL (NEGATIVE); NITRATE,URINE NEGATIVE (NEGATIVE); OCCULT BLOOD,URINE LARGE (NEGATIVE); PH,URINE 5.5 (5.0-8.0); PROTEIN,URINE 50 mg/dL (NEGATIVE); UROBILINOGEN,URINE 0.2 mg/dL (0.2-1.0)
[2024-05-17] MEDS: 0.9% NACL 500ML IV.SOLN 500 ML IV ONE (14:57)
[2024-05-17 15:00] LABS: BACTERIA,URINE RARE /HPF (None Seen); RBC,URINE TNTC /HPF (0-1); UNCLASSIFIED CRYSTAL 4 /HPF (None Seen)
[2024-05-17 16:51] VITALS: BP 135/64; PULSE 53; RESP 16; O2SAT 96
== END 2024-05-17 17:02 | disposition home or self-care (01) ==
LOC: EDH 10:35
DX: M94.0 Chondrocostal junction syndrome [Tietze] (principal); E83.42 Hypomagnesemia; R00.1 Bradycardia, unspecified; E11.9 Type 2 diabetes mellitus without complications; E78.00 Pure hypercholesterolemia, unspecified; I10 Essential (primary) hypertension; Z79.82 Long term (current) use of aspirin; Z79.899 Other long term (current) drug therapy; Z88.5 Allergy status to narcotic agent; Z95.1 Presence of aortocoronary bypass graft; Z98.890 Other specified postprocedural states
CPT/HCPCS: 99285; 96360; 71045; 83735; 84484 ×3; 80053; 83880; 85025; 81001; 36415; 93005 ×2; 96372; J7040; J1885

== ENCOUNTER → 2024-10-09 | Outpatient (CLI) | payer OTHER, MEDICARE ==
[2024-10-05 12:10] LABS: BASOPHILS # (AUTO) 0.02 K/uL (0.00-0.20); BASOPHILS % (AUTO) 0.4 % (0.0-5.0); EOSINOPHILS # (AUTO) 0.11 K/uL (0.00-0.70); EOSINOPHILS % (AUTO) 2.3 % (0.0-8.0); HEMATOCRIT 40.6 % (42-54); IMMATURE GRANULOCYTE ABSOLUTE 0.01 K/uL (0-1); LYMPHOCYTES # (AUTO) 1.3 K/uL (1.0-4.8); LYMPHOCYTES % (AUTO) 26.5 % (21.0-51.0); MEAN CORPUSCULAR HEMOGLOBIN 31.3 pg (27.0-33.0); MEAN CORPUSCULAR HGB CONC 32.3 g/dL (32.0-36.0); MEAN CORPUSCULAR VOLUME 97.1 fL (79-99); MONOCYTES # (AUTO) 0.6 K/uL (0.1-1.0); MONOCYTES % (AUTO) 12.3 % (3.0-13.0); NEUTROPHILS # (AUTO) 2.8 K/uL (1.8-7.7); NEUTROPHILS % (AUTO) 58.3 % (40.0-77.0); PLATELET COUNT (AUTO) 157 K/uL (130-400); RED BLOOD CELL COUNT(AUTO) 4.18 MIL/uL (4.50-6.20); RED CELL DISTRIBUTION WIDTH 13.1 % (11.0-15.5); WHITE BLOOD COUNT (AUTO) 4.8 K/uL (4.8-10.8)
[~2024-10-09] MED LIST changes: +IOHEXOL 350 MG/ML 100ML INFUS..BTL IV ONE; -ROSU20TA73 PO; +ROSU20TA98 PO
--- NOTE | 2024-10-09 12:57 | HMCIMG ---
CT ABDOMEN/PELVIS W/WO CONTRAS HISTORY: Bloody urine COMPARISON: 11/30/2023 TECHNIQUE: Multiple sequential axial images of the abdomen and pelvis were obtained from the dome of the diaphragm through symphysis pubis. Patient was given 100 cc of Omnipaque through intravenous route. Oral contrast was not given. FINDINGS: No pleural effusion is seen bilaterally. There is no evidence of parenchymal disease or pulmonary nodule of the visualized lower lungs. Degenerative changes of the thoracolumbar spine are present. Compression fractures are seen worse at L2 with 25% loss of height. The heart is not enlarged. Liver measured 15 cm. Small hiatal hernia is seen. Post cholecystectomy changes are seen. Common duct measured 13 mm. There is diverticulosis. The liver, spleen, adrenal glands and pancreas are unremarkable. There is no evidence of hydronephrosis bilaterally. No evidence of renal stone is seen. Fecal material is seen in the colon. There are normal size retroperitoneal and mesenteric lymph nodes. No ascites is seen. Atherosclerotic changes are present. There is infrarenal abdominal aortic aneurysm measuring 4 cm grossly unchanged. Pelvic sidewalls are symmetric bilaterally. Bladder is moderately distended with hyperdense area near the posterior bladder wall more on the left measuring 2.8 cm suspicious for enlarged prostate with mass lesion not excluded.. Superimposed mass lesion cannot be excluded. Prostate gland is enlarged measuring 6.7 x 5.8 x 7 cm. IMPRESSION: 1. Diverticulosis. Bladder is moderately distended with hyperdense area near the posterior bladder wall more on the left measuring 2.8 cm suspicious for enlarged prostate with mass lesion not excluded. Superimposed blood product cannot be excluded. Prostate gland is enlarged measuring 6.7 x 5.[address] was performed with one or more following dose reduction techniques: automated exposure control, adjustment of the mA and kv according to patient's size, or use of a iterative reconstruction technique.
== END | disposition home or self-care (01) ==
LOC: RAH 10:27
PROVIDERS: ATTEND Urology
DX: M48.56XA Collapsed vertebra, not elsewhere classified, lumbar region, initial encounter for fracture (principal); K57.30 Diverticulosis of large intestine without perforation or abscess without bleeding; N32.89 Other specified disorders of bladder; I71.43 Infrarenal abdominal aortic aneurysm, without rupture; N40.0 Benign prostatic hyperplasia without lower urinary tract symptoms; K44.9 Diaphragmatic hernia without obstruction or gangrene; R31.0 Gross hematuria; M47.815 Spondylosis without myelopathy or radiculopathy, thoracolumbar region; Z90.49 Acquired absence of other specified parts of digestive tract; I70.90 Unspecified atherosclerosis
CPT/HCPCS: 80048; 85025; 36415; 74178; Q9967

== ENCOUNTER 2024-10-10 03:37 | Emergency (ER) | payer OTHER, MEDICARE ==
[~2024-10-10] VITALS: Ht 162.6 cm; Wt 84.8 kg
[~2024-10-10 03:37] MED LIST changes: -IOHEXOL 350 MG/ML 100ML INFUS..BTL IV ONE
[2024-10-10 05:05] LABS: BASOPHILS # (AUTO) 0.03 K/uL (0.00-0.20); BASOPHILS % (AUTO) 0.4 % (0.0-5.0); EOSINOPHILS # (AUTO) 0.22 K/uL (0.00-0.70); EOSINOPHILS % (AUTO) 3.1 % (0.0-8.0); HEMATOCRIT 40.1 % (42-54); IMMATURE GRANULOCYTE ABSOLUTE 0.02 K/uL (0-1); LYMPHOCYTES # (AUTO) 1.2 K/uL (1.0-4.8); LYMPHOCYTES % (AUTO) 17.5 % (21.0-51.0); MEAN CORPUSCULAR HEMOGLOBIN 31.4 pg (27.0-33.0); MEAN CORPUSCULAR HGB CONC 33.2 g/dL (32.0-36.0); MEAN CORPUSCULAR VOLUME 94.8 fL (79-99); MONOCYTES # (AUTO) 0.8 K/uL (0.1-1.0); MONOCYTES % (AUTO) 11.6 % (3.0-13.0); NEUTROPHILS # (AUTO) 4.7 K/uL (1.8-7.7); NEUTROPHILS % (AUTO) 67.1 % (40.0-77.0); PLATELET COUNT (AUTO) 151 K/uL (130-400); RED BLOOD CELL COUNT(AUTO) 4.23 MIL/uL (4.50-6.20); RED CELL DISTRIBUTION WIDTH 12.8 % (11.0-15.5)
[2024-10-10 05:19] LABS: CREATININE 0.9 mg/dL (0.5-1.3); POTASSIUM 4.2 mmol/L (3.5-5.1)
[2024-10-10 05:39] LABS: APPEARANCE,URINE CLOUDY (CLEAR); BILIRUBIN,URINE NEGATIVE (NEGATIVE); COLOR,URINE LIGHT-ORANGE (YELLOW); GLUCOSE, URINE (UA) NEGATIVE (NEGATIVE); KETONES,URINE NEGATIVE (NEGATIVE); LEUKOCYTE ESTERASE ,URINE 25 Leu/uL (NEGATIVE); NITRATE,URINE NEGATIVE (NEGATIVE); OCCULT BLOOD,URINE LARGE (NEGATIVE); PROTEIN,URINE 10 mg/dL (NEGATIVE); UROBILINOGEN,URINE 0.2 mg/dL (0.2-1.0)
[2024-10-10 05:45] LABS: ADD UA MICROSCOPIC YES
[2024-10-10 05:49] LABS: BACTERIA,URINE RARE /HPF (None Seen); RBC,URINE TNTC /HPF (0-1); SQUAMOUS EPITHELIAL CELL,UR RARE /HPF (0-2)
--- NOTE | 2024-10-10 06:16 | ERN ---
ED Note History of Present Illness Stated Complaint: C/O URINARY RETENTION W/BLOOD IN URINE Chief Complaint: Urinary Retention Time Seen by MD: 03:57 Dictation: Is an 84-year-old male who came into the emergency room with complaints of severe urinary retention and elio blood per urethra. Apparently this has been going on for many days and his primary care physician requested a CT scan of the abdomen and pelvis yesterday. He looked very disturbed in the family members were concerned and they dropped him in the ER for evaluation. He was dribbling urine and appeared uncomfortable.. Patient is a poor historian unable to furnish much history other than moaning and being uncomfortable Temperature 96.4 pulse 71 respirations 20 blood pressure 132/79 pulse oximetry 94% on room air His chronic medical problems include diabetes mellitus, hypertension, hypercholesterolemia, coronary artery disease status post CABG and gout Allergies: Coded Allergies: morphine (Unverified Allergy, Severe, HYPOTENSION AND BRADYCARDIA, 01/25/24) codeine (Unverified Allergy, Unknown, 05/17/16) Home Meds Reported Medications [Potassium] No Conflict Check, 10 MEQ PO AM 01/18/24 Lisinopril (Lisinopril) 10 Mg Tablet, 10 MG PO AM, TAB 01/18/24 [Magnesium] No Conflict Check, 400 MG PO AM 01/18/24 Pantoprazole Sodium (Pantoprazole Sodium) 40 Mg Tablet.dr, 40 MG PO AM, TAB 01/18/24 Nitrofurantoin Macrocrystal (Nitrofurantoin) 100 Mg Capsule, 100 MG PO AM, CAP 01/18/24 Ranolazine (Ranolazine ER) 500 Mg Tab.er.12h, 1 TAB PO BID 01/18/24 Famotidine (Famotidine) 40 Mg Tablet, 1 TAB PO AM 01/18/24 Furosemide (Furosemide) 20 Mg Tablet, 20 MG PO AM, TAB 01/18/24 Sertraline HCl (Sertraline HCl) 50 Mg Tablet, 50 MG PO DAILY, TAB 02/14/19 Finasteride (Finasteride) 5 Mg Tablet, 5 MG PO DAILY, TAB 02/14/19 Rosuvastatin Calcium (Rosuvastatin Calcium) 20 Mg Tablet, 20 MG PO DAILY, TAB 02/14/19 Aspirin (ASPIRIN 81 MG ECTAB) 81 Mg Ectab, 81 MG PO DAILY, TAB.EC 04/26/18 Doxazosin Mesylate (Doxazosin Mesylate) 8 Mg Tablet, 4 MG PO DAILY, TAB 08/18/16 Allopurinol (Allopurinol) 300 Mg Tablet, 300 MG PO DAILY, TAB 01/18/15 Past Medical History Past Medical History: Diabetes-Type II, High Cholesterol, Hypertension Additional Past Medical Hx: PROSTATE Surgical History: Other Surgical History Other: OPEN HEART SX (2016) Family History: Negative Social History: Negative, Other RN Note Reviewed/Agreed w/PFSH: Yes Review of System Dictation Constitutional: Negative for fever,chills, and weight loss Eyes: Negative for injury, pain,redness, and discharge ENT: Negative for injury,pain or swelling Cardiovascular: Negative for chest pain, palpitations, and edema Respiratory: Negative for shortness of breath, cough, and wheezing, Abdomen/GI: Negative for abdominal pain, nausea, vomiting, diarrhea, and constipation Back: Negative for injury and pain : Negative for injury, positive for bleeding and urinary retention MS/Extremity: Negative for injury and deformity Skin: Negative for rash, and discoloration Neuro: Negative for headache, weakness, numbness, tingling, and seizure Psych: Negative for suicide ideation, homicidal ideation, and hallucinations Initial Vital Sign VS Vital Signs Date Time Temp Pulse Resp B/P (MAP) Pulse Ox O2 Delivery O2 Flow Rate FiO2 10/10/24 03:38 96.4 71 20 132/79 98 Room Air 10/10/24 04:49 0 21 Physical Exam Dictation General: awake, alert, very frail elderly male who is uncomfortable but not in acute respiratory distress Head/Face: Normocephalic, atraumatic Eyes: PERRL, EOMI, vision at baseline ENT: oral cavity clear, TMs clear, no signs of infection Neck: Trachea midline, supple, no nuchal rigidity Cardiovascular: RRR, normal S1/S2, No MRGs, no JVD Respiratory: CTAB, no respiratory distress, No rales or wheezes Abdomen: Soft, non-tender, non-distended, normal bowel sounds, no guarding or rebound. Skin: Warm, dry, normal turgor, no rash MS/Extremity: Pulses equal, no cyanosis, neurovascular intact, FROM Neuro: COAx3, GCS 15, strength 5/5, CN 2-12 intact, normal cerebellar exam, normal gait, Psych: Normal behavior, mood, and affect normal Extremities-trace edema without any palpable cords, Homans sign is negative Results (Laboratory/Radiology) Laboratory/Radiology Laboratory Tests Test 10/10/24 04:56 White Blood Count 7.0 K/uL (4.8-10.8) Red Blood Count 4.23 MIL/uL (4.50-6.20) L Hemoglobin 13.3 g/dL (14.0-18.0) L Hematocrit 40.1 % (42-54) L Mean Corpuscular Volume 94.8 fL (79-99) Mean Corpuscular Hemoglobin 31.4 pg (27.0-33.0) Mean Corpuscular Hemoglobin Concent 33.2 g/dL (32.0-36.0) Red Cell Distribution Width 12.8 % (11.0-15.5) Platelet Count 151 K/uL (130-400) Mean Platelet Volume 10.6 fL (7.5-10.5) H Immature Granulocyte % (Auto) 0.3 % (0-1) Neutrophils (%) (Auto) 67.1 % (40.0-77.0) Lymphocytes (%) (Auto) 17.5 % (21.0-51.0) L Monocytes (%) (Auto) 11.6 % (3.0-13.0) Eosinophils (%) (Auto) 3.1 % (0.0-8.0) Basophils (%) (Auto) 0.4 % (0.0-5.0) Neutrophils # (Auto) 4.7 K/uL (1.8-7.7) Lymphocytes # (Auto) 1.2 K/uL (1.0-4.8) Monocytes # (Auto) 0.8 K/uL (0.1-1.0) Eosinophils # (Auto) 0.22 K/uL (0.00-0.70) Basophils # (Auto) 0.03 K/uL (0.00-0.20) Absolute Immature Granulocyte (auto 0.02 K/uL (0-1) Nucleated Red Blood Cells 0.0 % (0.0-0.19) Prothrombin Time 10.5 SEC (9.6-11.6) Prothromb Time International Ratio <= 0.93 (0.85-1.15) Activated Partial Thromboplast Time 28.7 SEC (26.3-35.5) Urine Color LIGHT-ORANGE (YELLOW) Urine Appearance CLOUDY (CLEAR) H Urine pH 7.0 (5.0-8.0) Urine Specific [place] 1.016 (1.001-1.031) Urine Protein 10 mg/dL (NEGATIVE) H Urine Glucose (UA) NEGATIVE mg/dL (NEGATIVE) Urine Ketones NEGATIVE mg/dL (NEGATIVE) Urine Occult Blood LARGE (NEGATIVE) H Urine Nitrate NEGATIVE (NEGATIVE) Urine Bilirubin NEGATIVE mg/dL (NEGATIVE) Urine Urobilinogen 0.2 mg/dL (0.2-1.0) Urine Leukocyte Esterase 25 Enoch/uL (NEGATIVE) H Urine RBC TNTC /HPF (0-1) H Urine WBC 2-5 /HPF (0-1) H Urine Squamous Epithelial Cells RARE /HPF (0-2) Urine Bacteria RARE /HPF (None Seen) Sodium Level 137 mmol/L (136-145) Potassium Level 4.2 mmol/L (3.5-5.1) Chloride Level 104 mmol/L (101-111) Carbon Dioxide Level 27 mmol/L (21-32) Blood Urea Nitrogen 13 mg/dL (7-18) Creatinine 0.9 mg/dL (0.5-1.3) Glomerular Filtration Rate Calc 84 mL/min (>90) Random Glucose 112 mg/dL (70-105) H Total Calcium 9.2 mg/dL (8.5-10.1) Labs Reviewed?: Yes CT Scan Comment: PATIENT: YOLIE DE LEON MR#: [id number] : 1940 SEX: M AGE: 84 LOCATION: [facility] ORDER 1108 STATUS: REG CLI REPORT#: [id number] SERVICE REASON: GROSS HEMATURIA ORDERING PHYSICIAN: JASVIR TSE MD PROCEDURE: ABD PELWWO - CT ABDOMEN/PELVIS W/WO CONTRAS CT ABDOMEN/PELVIS W/WO CONTRAS HISTORY: Bloody urine COMPARISON: 11/30/2023 TECHNIQUE: Multiple sequential axial images of the abdomen and pelvis were obtained from the dome of the diaphragm through symphysis pubis. Patient was given 100 cc of Omnipaque through intravenous route. Oral contrast was not given. FINDINGS: No pleural effusion is seen bilaterally. There is no evidence of parenchymal disease or pulmonary nodule of the visualized lower lungs. Degenerative changes of the thoracolumbar spine are present. Compression fractures are seen worse at L2 with 25% loss of height. The heart is not enlarged. Liver measured 15 cm. Small hiatal hernia is seen. Post cholecystectomy changes are seen. Common duct measured 13 mm. There is diverticulosis. The liver, spleen, adrenal glands and pancreas are unremarkable. There is no evidence of hydronephrosis bilaterally. No evidence of renal stone is seen. Fecal material is seen in the colon. There are normal size retroperitoneal and mesenteric lymph nodes. No ascites is seen. Atherosclerotic changes are present. There is infrarenal abdominal aortic aneurysm measuring 4 cm grossly unchanged. Pelvic sidewalls are symmetric bilaterally. Bladder is moderately distended with hyperdense area near the posterior bladder wall more on the left measuring 2.8 cm suspicious for enlarged prostate with mass lesion not excluded.. Superimposed mass lesion cannot be excluded. Prostate gland is enlarged measuring 6.7 x 5.8 x 7 cm. IMPRESSION: 1. Diverticulosis. Bladder is moderately distended with hyperdense area near the posterior bladder wall more on the left measuring 2.8 cm suspicious for enlarged prostate with mass lesion not excluded. Superimposed blood product cannot be excluded. Prostate gland is enlarged measuring 6.7 x 5.[address] was performed with one or more following dose reduction techniques: automated exposure control, adjustment of the mA and kv according to patient's size, or use of a iterative reconstruction technique. DICTATED BY: GENESIS ANNA MD DATE: 10/09/24 1249 ELECTRONICALLY SIGNED BY: GENESIS ANNA MD DATE: 10/09/24 1257 ED Course ED Course Orders Procedure Category Date Status Time Cbc With Differential LAB 10/10/24 Complete 04:45 Basic Metabolic Panel LAB 10/10/24 Complete 04:45 Pt And Ptt LAB 10/10/24 Complete 04:45 Urinalysis Profile LAB 10/10/24 Complete 04:45 Nurse Driven Robbins DARIO 10/10/24 Complete Removal Pro 04:45 Iv Insertion CPOE 10/10/24 Transmitted 04:45 0.9%Nacl 1000ml (Ns PHA 10/10/24 Complete 1000ml) 06:30 Ceftriaxone 1g Vial PHA 10/10/24 Complete (Rocephine 1g Inj) 06:30 Current Medications Medications (Trade) Dose Ordered Sig/Zackery Route PRN Reason Start Time Stop Time Status Last Admin Dose Admin Ceftriaxone Sodium (ROCEphine 1G INJ) 1 gm ONCE ONCE IVPB 10/10/24 06:30 12 06:31 DC 10/10/24 06:33 Sodium Chloride 1,000 ml @ 125 mls/hr ONCE ONCE IV 10/10/24 06:30 10/10/24 09:17 DC 10/10/24 06:34 Vital Signs Date Time Temp Pulse Resp B/P (MAP) Pulse Ox O2 Delivery O2 Flow Rate FiO2 10/10/24 09:14 98.4 68 16 124/72 98 Room Air* 0 21 10/10/24 06:55 74 18 118/54 98 Room Air* 0 21 10/10/24 04:49 98.6 74 18 124/58 98 Room Air* 0 21 10/10/24 03:38 96.4 71 20 132/79 98 Room Air We will perform diagnostic labs,and administer medications according to the patient's complaint. Once the results are available, will review and personally interpreted the labs to rule out any acute life-threatening emergency the trach require immediate intervention and treatment. I will then re-evaluate the patient after treatment and diagnostic exams have return to determine whether the patient requires any further testing, can safely be discharged home or need further admission to hospital for additional treatment and evaluation Bedside bladder scan was done which showed up to 200 mL of urine. Robbins catheter was placed with approximately 400 cc of urine that was collected. This was also bloody Labs reviewed CBC with a normal limits BNP 7 is also within normal limits Patient is extremely flare frail and elderly and is unable to manage himself at home and family members are unable to care for the Robbins catheter. Needs inpatient care and Urology evaluation. Sign-out 2:[address] Goldstein Medical Decision Making MDM MDM: Differential diagnosis: Urinary retention secondary to clot, urethral stricture, BPH, prostate CA 0820- Dr. Batres, consult Rationale: Tests considered and ordered secondary to shared decision making include: labs, ECG and radiology Previous outside records reviewed: Old ER visits. Risk of complication and/or morbidity or mortality of patient management: None Medications-Per medication reconciliation Need for hospitalization: Patient does not meet criteria for hospitalization. Need for emergency major/minor surgery: No There are no social concerns with this patient. Patient's prior external medical records from other ER visits were reviewed by me as indicated. Prior testing and results from previous visits were reviewed. Prior tests were taken into account with medical decision making and resource utilization, independent historian/historians were used to obtain complete medical history. I independently interpreted the test that were performed, results were reviewed by me and considered findings on radiology if ordered. Medical management and examination interpretation discussions were had by me with other qualified healthcare professionals as indicated for the patient's care. Primary care doctor Dr. Batres was called for admission for further evaluation workup and urology consultation however primary care doctor reported that patient did not require admission and refused admission today. Reports that he will see him in clinic tomorrow morning. Patient did not want to be transferred to another facility for admission and agrees with current treatment plan we will see his primary care doctor in the morning. Problem List Problem List: (1) Acute on chronic urinary retention (2) Hematuria, gross (3) Status post insertion of Robbins catheter (4) BPH (benign prostatic hyperplasia) (5) Prostate mass DX & DISP Disposition: Discharge Departure Impression: Primary Impression: Acute on chronic urinary retention Additional Impressions: Hematuria, gross, Status post insertion of Robbins catheter, BPH (benign prostatic hyperplasia), Prostate mass Condition: Stable Additional Instructions: Patient and the caregiver have been informed of all the diagnostic tests and the imaging conducted during the today's visit to the emergency room and has verbalized understanding of the results I have personally reviewed and interpret ed all diagnostic exams performed here in the ER today as well as the vital signs documented by the nursing staff. The patient is now being discharged to home and should follow up with the primary care physician or the specialist as directed by the ER staff. Follow-up with primary care provider in 1 to 2 days. Take medications as directed here in the emergency room. Okay to continue home medications unless otherwise discussed during your visit in the emergency room today. Return to your nearest emergency room if symptoms worsen or if there is no improvement. Call 911 if you need immediate assistance. Take Tylenol or Motrin o [id number] as needed and if no contraindications are present. Increase oral hydration. A wound culture or urine culture was ordered here in the emergency room department please follow-up with primary care provider and advise them to get repeat ports from our facility. If you had any Jasper wrap/splints that were applied here, please do not remove them until you see your primary care or specialty. Referrals: AFRICA BATRES MD (PCP) I have reviewed, & agreed with my scribe's, documentation. (Entered by Karly Liu, acting as a scribe for Dr. Polk) I personally scribed for LATOYA ALMEIDA MD ([email or web address]) on 10/10/24 at 08:17. Electronically submitted by Karly Liu ([email or web address]). I personally scribed for LATOYA ALMEIDA MD ([email or web address]) on 10/10/24 at 08:24. Electronically submitted by Karly Liu ([email or web address]). I personally scribed for AGAPITO POLK MD ([email or web address]) on 10/10/24 at 09:10. Electronically submitted by Karly Liu ([email or web address]). LATOYA ALMEIDA MD Oct 10, 2024 06:15 AGAPITO POLK MD Oct 10, 2024 08:26
[2024-10-10] MEDS: cefTRIAXone 1G VIAL IVPB ONE (06:33)
[2024-10-10] MEDS: 0.9%NACL 1000ML 1,000 ML IV ONE (06:34)
[2024-10-10 06:54] LABS: INR <= 0.93 (0.85-1.15); PROTHROMBIN TIME 10.5 SEC (9.6-11.6)
[2024-10-10 06:55] LABS: PARTIAL THROMBOPLASTIN TIME 28.7 SEC (26.3-35.5)
[2024-10-10 09:14] VITALS: BP 124/72; PULSE 68; RESP 16; TEMP 98.5; O2SAT 98
--- NOTE | 2024-10-10 09:17 | NUR ---
CHANGE GOMEZ BAG TO LEG BAG PRIOR TO PT DC.
== END 2024-10-10 09:17 | disposition home or self-care (01) ==
LOC: EDH 03:37
DX: R33.8 Other retention of urine (principal); R31.0 Gross hematuria; N40.1 Benign prostatic hyperplasia with lower urinary tract symptoms; E11.9 Type 2 diabetes mellitus without complications; E78.00 Pure hypercholesterolemia, unspecified; I10 Essential (primary) hypertension; Z79.82 Long term (current) use of aspirin; Z79.899 Other long term (current) drug therapy; Z88.5 Allergy status to narcotic agent
CPT/HCPCS: 99284; 96365; 96366; 80048; 85025; 85610; 85730; 81001; 36415; 51702; J7030; J0696

== ENCOUNTER 2024-10-14 13:51 | Emergency (ER) | payer OTHER, MEDICARE ==
[~2024-10-14] VITALS: Ht 162.6 cm; Wt 82.1 kg
--- NOTE | 2024-10-14 15:24 | ERN ---
ED Note History of Present Illness Stated Complaint: GOMEZ LEAK Chief Complaint: Urinary Catheter Problems Time Seen by MD: 14:45 Dictation: PATIENT IS AN 84-YEAR-OLD MALE HERE WITH A GOMEZ CATHETER THAT WAS PLAC[place] [facility] [place]ENT[place]. HE IS COMPLAINING TODAY IT IS LEAKING AROUND HIS PENIS WHERE THE INSERTION IS. ALSO SAID HE SAW BLOOD IN THE GOMEZ BAG. Allergies: Coded Allergies: morphine (Unverified Allergy, Severe, HYPOTENSION AND BRADYCARDIA, 01/25/24) codeine (Unverified Allergy, Unknown, 05/17/16) Home Meds Reported Medications [Potassium] No Conflict Check, 10 MEQ PO AM 01/18/24 Lisinopril (Lisinopril) 10 Mg Tablet, 10 MG PO AM, TAB 01/18/24 [Magnesium] No Conflict Check, 400 MG PO AM 01/18/24 Pantoprazole Sodium (Pantoprazole Sodium) 40 Mg Tablet.dr, 40 MG PO AM, TAB 01/18/24 Nitrofurantoin Macrocrystal (Nitrofurantoin) 100 Mg Capsule, 100 MG PO AM, CAP 01/18/24 Ranolazine (Ranolazine ER) 500 Mg Tab.er.12h, 1 TAB PO BID 01/18/24 Famotidine (Famotidine) 40 Mg Tablet, 1 TAB PO AM 01/18/24 Furosemide (Furosemide) 20 Mg Tablet, 20 MG PO AM, TAB 01/18/24 Sertraline HCl (Sertraline HCl) 50 Mg Tablet, 50 MG PO DAILY, TAB 02/14/19 Finasteride (Finasteride) 5 Mg Tablet, 5 MG PO DAILY, TAB 02/14/19 Rosuvastatin Calcium (Rosuvastatin Calcium) 20 Mg Tablet, 20 MG PO DAILY, TAB 02/14/19 Aspirin (ASPIRIN 81 MG ECTAB) 81 Mg Ectab, 81 MG PO DAILY, TAB.EC 04/26/18 Doxazosin Mesylate (Doxazosin Mesylate) 8 Mg Tablet, 4 MG PO DAILY, TAB 08/18/16 Allopurinol (Allopurinol) 300 Mg Tablet, 300 MG PO DAILY, TAB 01/18/15 Past Medical History Past Medical History: Diabetes-Type II, High Cholesterol, Hypertension Additional Past Medical Hx: PROSTATE Surgical History: Other Surgical History Other: OPEN HEART SX (2016) Family History: Negative Social History: Negative, Other RN Note Reviewed/Agreed w/PFSH: Yes Review of System Dictation CONSTITUTIONAL: NEGATIVE EXCEPT FOR HPI HEAD/FACE: NEGATIVE EXCEPT FOR HPI EENT: NEGATIVE EXCEPT FOR HPI RESPIRATORY: NEGATIVE EXCEPT FOR HPI GASTROINTESTINAL/ABDOMINAL: NEGATIVE EXCEPT FOR HPI GENITOURINARY: NEGATIVE EXCEPT FOR HPI LEAKING GOMEZ CATHETER WITH HEMATURIA MUSCULOSKELETAL: NEGATIVE EXCEPT FOR HPI INTEGUMENTARY: NEGATIVE EXCEPT FOR HPI NEUROLOGICAL/PSYCH: NEGATIVE EXCEPT FOR HPI HEMATOLOGIC/LYMPHATIC: NEGATIVE EXCEPT FOR HPI ALL SYSTEMS NEGATIVE, EXCEPT NOTED ABOVE. 13 POINT REVIEW OF SYSTEMS ASSESSED AND ALL NEGATIVE EXCEPT FOR ABOVE. Initial Vital Sign VS Vital Signs Date Time Temp Pulse Resp B/P (MAP) Pulse Ox O2 Delivery O2 Flow Rate FiO2 10/14/24 13:56 98.4 85 18 132/76 99 10/14/24 15:57 Room Air* 0 21 Physical Exam Dictation VITAL SIGNS REVIEWED GENERAL APPEARANCE: ALERT, ORIENTED X 3, NO ACUTE DISTRESS, WELL DEVELOPED, NOUR ISHED. HEAD AND FACE: NON-TRAUMATIC. EYES: PERRL, PINK CONJUNCTIVAS, EYELID NO TRAUMA, ANTERIOR CHAMBER WITH ARCUS SENILIS. EARS: PINNAS INTACT AND NO SIGNS OF TRAUMA OR ERYTHEMA EAR CANALS CLEAR AND NO DISCHARGE TM NO ERYTHEMA NOSE: NO DISCHARGE, NO BLEEDING. OROPHARYNX: MOUTH NORMAL, TONGUE PINK, PHARYNX CLEAR,NO ERYTHEMA, TONSILS NO EXUDATES, NO ABSCESSES NOTED, MUCOUS MEM BRANE MOIST NECK: SUPPLE, NON-TENDER, NO THYROMEGALY, NO MASSES, NO JVD, NO BRUITS BREAST:DEFERRED CHEST:NO TENDERNESS, NO CREPITUS, NO PARADOXICAL MOVEMENT, NO RETRACTIONS LUNGS:CLEAR, WELL-VENTILATED, SYMMETRIC, NO RALES, NO WHEEZING, NO RHONCHI, NO STRIDOR, GOOD BREATH SOUNDS BILATERALLY HEART: REGULAR RATE, REGULAR RHYTHM, NO MURMUR, NO GALLOPS VASCULAR: NO PERIPHERAL EDEMA, ABDOMEN: SOFT, POSITIVE BOWEL SOUNDS, NONDISTENDED, NO GUARDING, NONTENDER, NO REBOUND, NO MASSES NO HEPATOMEGALY, NO SPLENOMEGALY, NO DOWNS'S SIGN, NO HERNIAS. RECTAL: DEFERRED GENITAL: DEFERRED GOMEZ CATHETER IN PLACE NEUROLOGICAL: NORMAL SPEECH, MOTOR FUNCTION INTACT, SENSORY FUNCTION INTACT MUSCULOSKELETAL: NECK NONTENDER, FULL RANGE OF MOTION, BACK NONTENDER, FULL RAN GE OF MOTION, EXTREMITIES: NONTENDER, FULL RANGE OF MOTION SKIN: COLOR PINK, DRY, NO TURGOR, NO RASH, NO LACERATIONS, NO ABRASIONS, NO CONTUSIONS. LYMPHATIC: DEFERRED Results (Laboratory/Radiology) Laboratory/Radiology Laboratory Tests Test 10/14/24 15:57 Urine Color BROWN (YELLOW) Urine Appearance TURBID (CLEAR) H Urine pH 7.0 (5.0-8.0) Urine Specific [place] 1.020 (1.001-1.031) Urine Protein >=300 mg/dL (NEGATIVE) H Urine Glucose (UA) 250 mg/dL (NEGATIVE) H Urine Ketones 15 mg/dL (NEGATIVE) H Urine Occult Blood LARGE (NEGATIVE) H Urine Nitrate POSITIVE (NEGATIVE) H Urine Bilirubin LARGE mg/dL (NEGATIVE) H Urine Urobilinogen >=8.0 mg/dL (0.2-1.0) H Urine Leukocyte Esterase MODERATE Enoch/uL Urine RBC TNTC /HPF (0-1) H Urine WBC 51-100 /HPF (0-1) H Urine Bacteria Few /HPF (None Seen) Labs Reviewed?: Yes ED Course ED Course Orders Procedure Category Date Status Time Urinalysis Profile LAB 10/14/24 Complete 15:22 Culture Urine LIANA 10/14/24 In Process 16:19 Phenazopyridine Hcl PHA 10/14/24 Complete 200 Mg Tab (Pyridium 17:00 Amox/Clav 875/125mg PHA 10/14/24 Complete Tab (Augmentin 875-1 17:00 Current Medications Medications (Trade) Dose Ordered Sig/Zackery Route PRN Reason Start Time Stop Time Status Last Admin Dose Admin Amoxicillin/ Clavulanate Potassium (Augmentin 875-125 Tablet) 1 each ONCE ONCE PO 10/14/24 17:00 10/14/24 17:01 DC 10/14/24 16:54 Phenazopyridine HCl (PYRIdium HCL 200 MG TAB) 200 mg ONCE ONCE PO 10/14/24 17:00 10/14/24 17:01 DC 10/14/24 16:54 Vital Signs Date Time Temp Pulse Resp B/P (MAP) Pulse Ox O2 Delivery O2 Flow Rate FiO2 10/14/24 15:57 98.4 73 18 152/68 95 Room Air* 0 21 10/14/24 13:56 98.4 85 18 132/76 99 Medical Decision Making MDM MEDICAL DECISION-MAKING BASED ON URINALYSIS AND TREATMENT FOR ACUTE CYSTITIS WITH HEMATURIA. PATIENT GOMEZ CATHETER IS FLOWING FREELY. NO FEVER NO CHILLS. GIVEN AUGMENTIN AND PYRIDIUM WE WILL BE DISCHARGED HOME TO FOLLOW UP WITH HIS DOCTOR. DX & DISP Disposition: Discharge Departure Impression: Primary Impression: Acute cystitis with hematuria Additional Impressions: Gomez catheter in place, Dysuria Condition: Stable Scripts Phenazopyridine HCl (Pyridium) 200 Mg Tab 200 MG PO TIDPC for 5 Days, #15 TAB TAKE WITH FOOD TO PREVENT STOMACH UPSET. Prov: BEST DOE NP 10/14/24 Amoxicillin/Potassium Clav (Amox Tr-K Clv 875-125 mg Tab) 875 Mg-125 Mg Tablet 1 EACH PO BID for 7 Days, #14 TAB 0 Refills Prov: BEST DOE NP 10/14/24 Additional Instructions: FOLLOW-UP WITH PRIMARY CARE PROVIDER IN 1 TO 2 DAYS. TAKE MEDICATIONS DIRECTED HERE IN THE EMERGENCY ROOM. OKAY TO CONTINUE HOME MEDICATIONS UNLESS OTHERWISE DISCUSSED DURING YOUR VISIT IN THE EMERGENCY ROOM TODAY. RETURN TO YOUR NEAREST EMERGENCY ROOM IF SYMPTOMS WORSEN OR IF THERE IS NO IMPROVEMENT. CALL 911 IF YOU NEED IMMEDIATE ASSISTANCE. TAKE TYLENOL OR MOTRIN [id number] NEEDED AND IF NO CONTRAINDICATIONS ARE PRESENT. INCREASE ORAL HYDRATION. A WOUND CULTURE OR URINE CULTURE WAS ORDERED HERE IN THE EMERGENCY ROOM DEPARTMENT PLEASE FOLLOW-UP WITH PRIMARY CARE PROVIDER AND ADVISE THEM TO GET REPEAT PORTS FROM OUR FACILITY. IF YOU HAD ANY PATRICIO WRAP/SPLINTS THAT WERE APPLIED HERE, PLEASE DO NOT REMOVE THEM UNTIL YOU SEE YOUR PRIMARY CARE OR SPECIALTY. TAKE ANTIBIOTICS DIRECTED UNTIL GONE., REMEMBER THE PYRIDIUM WILL TURN YOUR URINE ORANGE RED. INCREASE YOUR WATER INTAKE AND SEE YOUR PRIMARY CARE DOCTOR FOR FOLLOW UP. Referrals: AFRICA BATRES MD (PCP) Time of Disposition: 17:39 I have reviewed the case, and I agree with, Diagnosis and Plan BEST DOE NP Oct 14, 2024 15:24
[2024-10-14 15:57] VITALS: BP 152/68; PULSE 73; RESP 18; TEMP 98.4; O2SAT 95
[2024-10-14 16:13] LABS: BILIRUBIN,URINE LARGE mg/dL (NEGATIVE); GLUCOSE, URINE (UA) 250 mg/dL (NEGATIVE); KETONES,URINE 15 mg/dL (NEGATIVE); LEUKOCYTE ESTERASE ,URINE MODERATE Leu/uL (NEGATIVE); NITRATE,URINE POSITIVE (NEGATIVE); OCCULT BLOOD,URINE LARGE (NEGATIVE); PROTEIN,URINE >=300 mg/dL (NEGATIVE); UROBILINOGEN,URINE >=8.0 mg/dL (0.2-1.0)
[2024-10-14 16:18] LABS: ADD UA MICROSCOPIC YES; APPEARANCE,URINE TURBID (CLEAR); COLOR,URINE BROWN (YELLOW)
[2024-10-14 16:34] LABS: RBC,URINE TNTC /HPF (0-1)
[2024-10-14 16:36] LABS: BACTERIA,URINE Few /HPF (None Seen)
[2024-10-14 16:37] LABS: WBC,URINE 51-100 /HPF (0-1)
[2024-10-14] MEDS: PHENAZOpyridine HCL 200 MG TAB 200 MG TABLET PO ONE (16:54)
[2024-10-14] MEDS: AMOX/CLAV 875/125MG TAB PO ONE (16:54)
[2024-10-14] MEDS ORDERED: PHEN-847 PO (17:40)
[2024-10-14] MEDS ORDERED: AMOX1TAB16 PO (17:40)
== END 2024-10-14 17:56 | disposition home or self-care (01) ==
LOC: EDH 13:51
DX: N30.01 Acute cystitis with hematuria (principal); R30.0 Dysuria; E11.9 Type 2 diabetes mellitus without complications; E78.00 Pure hypercholesterolemia, unspecified; I10 Essential (primary) hypertension; Z79.82 Long term (current) use of aspirin; Z79.899 Other long term (current) drug therapy; Z88.5 Allergy status to narcotic agent
CPT/HCPCS: 81001; 87086; 99283

== ENCOUNTER 2024-10-20 14:18 | Emergency (ER) | payer OTHER, MEDICARE ==
[~2024-10-20] VITALS: Ht 162.6 cm; Wt 81.6 kg
[~2024-10-20 14:18] MED LIST changes: +AMOX1TAB16 PO; +PHEN-847 PO
[2024-10-20 14:20] VITALS: TEMP 98.5
[2024-10-20 15:53] LABS: BASOPHILS # (AUTO) 0.02 K/uL (0.00-0.20); BASOPHILS % (AUTO) 0.4 % (0.0-5.0); EOSINOPHILS # (AUTO) 0.22 K/uL (0.00-0.70); EOSINOPHILS % (AUTO) 4.1 % (0.0-8.0); HEMATOCRIT 35.9 % (42-54); IMMATURE GRANULOCYTE ABSOLUTE 0.02 K/uL (0-1); LYMPHOCYTES # (AUTO) 0.8 K/uL (1.0-4.8); LYMPHOCYTES % (AUTO) 15.3 % (21.0-51.0); MEAN CORPUSCULAR HEMOGLOBIN 31.1 pg (27.0-33.0); MEAN CORPUSCULAR HGB CONC 32.9 g/dL (32.0-36.0); MEAN CORPUSCULAR VOLUME 94.5 fL (79-99); MONOCYTES # (AUTO) 0.6 K/uL (0.1-1.0); MONOCYTES % (AUTO) 10.7 % (3.0-13.0); NEUTROPHILS # (AUTO) 3.8 K/uL (1.8-7.7); NEUTROPHILS % (AUTO) 69.1 % (40.0-77.0); PLATELET COUNT (AUTO) 162 K/uL (130-400); RED CELL DISTRIBUTION WIDTH 12.9 % (11.0-15.5); WHITE BLOOD COUNT (AUTO) 5.4 K/uL (4.8-10.8)
[2024-10-20] MEDS: ondanSETRON ODT 4MG TAB SL ONE (16:02)
[2024-10-20] MEDS: acetaMINOPHEN/coDEINE 120/12MG 5ML PO ONE (16:02)
[2024-10-20 16:04] LABS: INR 0.96 (0.85-1.15); PROTHROMBIN TIME 10.8 SEC (9.6-11.6)
[2024-10-20 16:06] LABS: PARTIAL THROMBOPLASTIN TIME 28.8 SEC (26.3-35.5)
[2024-10-20 16:16] LABS: POTASSIUM 4.7 mmol/L (3.5-5.1)
--- NOTE | 2024-10-20 16:28 | NUR ---
URINE WAS SENT UP TO LAB
--- NOTE | 2024-10-20 16:29 | HMCIMG ---
Exam Type: CT ABDOMEN/PELVIS W/O CONTRAST Clinical Information: Flank pain Comparison: None CT Dose Index (CTDI): 10.20 mGy Dose Length Product (DLP): 530.00 total mGy-cm PROTOCOL: Routine noncontrast helical scanning of the abdomen and pelvis was performed at 5mm collimation. Findings: No evidence of nephro or ureterolithiasis is found. No hydronephrosis or ureteral dilatation is seen. The lung bases are clear. The stomach is unremarkable. It shows no wall thickening. No gross ulceration is seen. It is not overly distended. There are no surrounding inflammatory changes. No wall lesions are identified to suggest cancer. The spleen is unremarkable. It is not enlarged. The pancreas shows normal anatomy. It is not fatty replaced. It shows no lesions. The pancreatic duct is not dilated. The gallbladder is unremarkable. It shows no cholelithiasis. The gallbladder wall is normal in thickness. There is no pericholecystic fluid. The is no acute or chronic inflammation noted. The adrenal glands are unremarkable. There is no enlargement. No lesions are noted. The liver is unremarkable. It shows no focal masses. The appendix is unremarkable. It shows no evidence of inflammation. No appendicolith is seen. The small bowel is unremarkable. There is no evidence of dilatation to suggest obstruction. No evidence of adynamic ileus is seen. There is no small bowel wall thickening to suggest enteritis. The colon is unremarkable. The urinary bladder is unremarkable. There is no wall thickening to suggest tumor or inflammation. There are no intraluminal calculi. There are no diverticula. There is no evidence of chronic bladder outlet obstruction. There is no evidence of urinary bladder distention to suggest urinary retention. The other pelvic structures are unremarkable. Infrarenal abdominal aortic aneurysm, maximum diameter 4 cm. IMPRESSION: No acute pathology. Mild infrarenal abdominal aortic aneurysm. This study was performed using dose reduction techniques to include automated exposure control and/or adjustment of the mA and/or kV according to patient size.
[2024-10-20 16:30] LABS: ALBUMIN 2.9 g/dL (3.5-5.0); BILIRUBIN,DIRECT 0.2 mg/dL (0.0-0.3); BILIRUBIN,TOTAL 0.8 mg/dL (0.2-1.0); TOTAL PROTEIN, SERUM 5.9 g/dL (6.0-8.3)
--- NOTE | 2024-10-20 16:54 | EKG ---
[facility] [place] Test Date: 2024-10-20 Test Time: 15:29:35 Pat Name: YOLIE DE LEON Department: ED Room: Gender: M Lan/Wan Engineer: [id number] : 1940 Requested By: MELITON ALBERTO Order Number: [id number] Reading MD: Timo Grajeda Measurements Intervals Scheller Rate: 62 P: -10 MO: 198 QRS: -81 QRSD: 158 T: 82 QT: 455 QTc: 445 Interpretive Statements Sinus rhythm Multiple ventricular premature complexes RBBB and LAFB Compared to ECG 05/17/2024 14:01:19 Ventricular premature complex(es) now present Sinus bradycardia no longer present Electronically Signed On 10-21-2024 14:09:16 X RAY ELECT[employer] WIRING TECHNICIAN by Timo Grajeda Please click the below link to view image of tracing.
[2024-10-20 16:59] LABS: APPEARANCE,URINE CLOUDY (CLEAR); BILIRUBIN,URINE 2 mg/dL (NEGATIVE); COLOR,URINE DARK-ORANGE (YELLOW); GLUCOSE, URINE (UA) NEGATIVE (NEGATIVE); KETONES,URINE NEGATIVE (NEGATIVE); LEUKOCYTE ESTERASE ,URINE 25 Leu/uL (NEGATIVE); NITRATE,URINE 2+ (NEGATIVE); OCCULT BLOOD,URINE LARGE (NEGATIVE); PH,URINE 6.5 (5.0-8.0); PROTEIN,URINE 100 mg/dL (NEGATIVE); UROBILINOGEN,URINE >=8.0 mg/dL (0.2-1.0)
[2024-10-20 17:02] LABS: RBC,URINE Full Field /HPF (0-1)
[2024-10-20 17:03] LABS: BACTERIA,URINE Many /HPF (None Seen)
--- NOTE | 2024-10-20 18:54 | NUR ---
FAILED ATTEMPT TO PLACE A 18FR [address] AND 20FR COUDE THREE WAY CATHETER. PT IN SEVERE DISCOMFORT AND CATH INSERTED ALL THE WAY IN W/SEVER PAIN AND UNABLE TO REACH THE BLADDER TO INFLATE THE 30ML BALLOON . ED MD ALBERTO INFORMED
--- NOTE | 2024-10-20 18:57 | ERN ---
General Chief Complaint: Blood in Urine: Stated Complaint: HEMATURIA AND GBW X 3 WKS Time Seen by MD: 15:20 History of Present Illness Initial Comments 84-year-old male came in for blood in urine. Patient has a Robbins in place and his Robbins bag has elio hematuria. Patient has a has no concerns. Allergies: Coded Allergies: morphine (Unverified Allergy, Severe, HYPOTENSION AND BRADYCARDIA, 01/25/24) Home Meds Active Scripts Phenazopyridine HCl (Pyridium) 200 Mg Tab, 200 MG PO TIDPC for 5 Days, #15 TAB TAKE WITH FOOD TO PREVENT STOMACH UPSET. Prov:BEST DOE NP 10/14/24 Amoxicillin/Potassium Clav (Amox Tr-K Clv 875-125 mg Tab) 875 Mg-125 Mg Tablet, 1 EACH PO BID for 7 Days, #14 TAB 0 Refills Prov:BEST DOE NP 10/14/24 Reported Medications [Potassium] No Conflict Check, 10 MEQ PO AM 01/18/24 Lisinopril (Lisinopril) 10 Mg Tablet, 10 MG PO AM, TAB 01/18/24 [Magnesium] No Conflict Check, 400 MG PO AM 01/18/24 Pantoprazole Sodium (Pantoprazole Sodium) 40 Mg Tablet.dr, 40 MG PO AM, TAB 01/18/24 Nitrofurantoin Macrocrystal (Nitrofurantoin) 100 Mg Capsule, 100 MG PO AM, CAP 01/18/24 Ranolazine (Ranolazine ER) 500 Mg Tab.er.12h, 1 TAB PO BID 01/18/24 Famotidine (Famotidine) 40 Mg Tablet, 1 TAB PO AM 01/18/24 Furosemide (Furosemide) 20 Mg Tablet, 20 MG PO AM, TAB 01/18/24 Sertraline HCl (Sertraline HCl) 50 Mg Tablet, 50 MG PO DAILY, TAB 02/14/19 Finasteride (Finasteride) 5 Mg Tablet, 5 MG PO DAILY, TAB 02/14/19 Rosuvastatin Calcium (Rosuvastatin Calcium) 20 Mg Tablet, 20 MG PO DAILY, TAB 02/14/19 Aspirin (ASPIRIN 81 MG ECTAB) 81 Mg Ectab, 81 MG PO DAILY, TAB.EC 04/26/18 Doxazosin Mesylate (Doxazosin Mesylate) 8 Mg Tablet, 4 MG PO DAILY, TAB 08/18/16 Allopurinol (Allopurinol) 300 Mg Tablet, 300 MG PO DAILY, TAB 01/18/15 Past Medical History Past Medical History: CAD, Diabetes-Type II, High Cholesterol, Hypertension, Prostatitis, Other Medical History Other: HIATAL HERNIA Past Surgical History: CABG, Other Surgical History Other: HIATAL HERNIA REPAIR Family History Family History: Negative Social History Social History: Negative, Other ROS Dictation CONSTITUTIONAL: No chills, no fever, no weakness, no diaphoresis, no malaise. HEAD/FACE: No signs of trauma. EENT: No eye pain, no blurred vision, no tearing, no double vision, no ear pain, no ear discharge, no nose pain, no nasal congestion, no throat pain, no throat swelling, no mouth pain. RESPIRATORY: No cough, no orthopnea, no SOB, no stridor, no wheezing. CARDIOVASCULAR: No chest pain, no edema, no palpitations, no syncope. GASTROINTESTINAL/ABDOMINAL: No abdominal pain, no constipation, no diarrhea, no nausea, no vomiting. GENITOURINARY: No abnormal discharge, no dysuria, no frequent urination, no hematuria. No complaints of pain in the genitals. MUSCULOSKELETAL: No back pain, no gout, no joint pain, no joint swelling, no muscle pain, no muscle stiffness, no neck pain. INTEGUMENTARY: No change in color, no change in hair/nails, no dryness, no lesion, no lumps, no rash. NEUROLOGICAL/PSYCH: No anxiety, not depressed, no emotional problem, no headache, no numbness, no pre-existing deficit, no history of seizures, no tremors, no weakness. HEMATOLOGIC/LYMPHATIC: Not anemic, no history of blood clots, no apparent bleeding, no bruising, glands not swollen. All Systems Negative, Except as Noted. Physical Exam Physical Exam Dictation VITAL SIGNS: Reviewed. GENERAL APPEARANCE: Alert, oriented x3, no acute distress, obese. HEAD AND FACE: Non-traumatic. EYES: PERRL, pink conjunctivas, eyelid no trauma, anterior chamber clear. EARS: Pinnas intact and no signs of trauma or erythema. Ear canals clear and no discharge. TMs no erythema. NOSE: No discharge, no bleeding. OROPHARYNX: Mouth normal, teeth no caries, tongue pink. Pharynx clear, no erythema. Tonsils no exudates, no abscesses noted. Mucous membrane moist. NECK: Supple, non-tender, no thyromegaly, no masses, no JVD, no bruits. BREAST: Deferred. CHEST: No tenderness, no crepitus, no paradoxical movement, no retractions. LUNGS: Clear, well-ventilated, symmetric, no rales, no wheezing, no rhonchi, no stridor, good breath sounds bilaterally. HEART: Regular rate, regular rhythm, no murmur, no gallops. VASCULAR: No peripheral edema. ABDOMEN: Soft, positive bowel sounds, nondistended, no guarding, nontender, no rebound, no masses no hepatomegaly, no splenomegaly, no Gandhi's sign, no hernias. RECTAL: Deferred. GENITAL: Robbins in place NEUROLOGICAL: Normal speech, gross motor function intact, gross sensory function intact. MUSCULOSKELETAL: Neck nontender, full range of motion, back nontender, full range of motion. EXTREMITIES: Nontender, full range of motion. SKIN: Color pink, dry, no turgor, no rash, no lacerations, no abrasions, no contusions. LYMPHATICS: Deferred. Results Laboratory and Microbiology Lab and Micro Result Laboratory Tests Test 10/20/24 15:30 10/20/24 16:27 10/20/24 17:05 White Blood Count 5.4 K/uL (4.8-10.8) Red Blood Count 3.80 MIL/uL (4.50-6.20) L Hemoglobin 11.8 g/dL (14.0-18.0) L Hematocrit 35.9 % (42-54) L Mean Corpuscular Volume 94.5 fL (79-99) Mean Corpuscular Hemoglobin 31.1 pg (27.0-33.0) Mean Corpuscular Hemoglobin Concent 32.9 g/dL (32.0-36.0) Red Cell Distribution Width 12.9 % (11.0-15.5) Platelet Count 162 K/uL (130-400) Mean Platelet Volume 11.3 fL (7.5-10.5) H Immature Granulocyte % (Auto) 0.4 % (0-1) Neutrophils (%) (Auto) 69.1 % (40.0-77.0) Lymphocytes (%) (Auto) 15.3 % (21.0-51.0) L Monocytes (%) (Auto) 10.7 % (3.0-13.0) Eosinophils (%) (Auto) 4.1 % (0.0-8.0) Basophils (%) (Auto) 0.4 % (0.0-5.0) Neutrophils # (Auto) 3.8 K/uL (1.8-7.7) Lymphocytes # (Auto) 0.8 K/uL (1.0-4.8) L Monocytes # (Auto) 0.6 K/uL (0.1-1.0) Eosinophils # (Auto) 0.22 K/uL (0.00-0.70) Basophils # (Auto) 0.02 K/uL (0.00-0.20) Absolute Immature Granulocyte (auto 0.02 K/uL (0-1) Nucleated Red Blood Cells 0.0 % (0.0-0.19) Prothrombin Time 10.8 SEC (9.6-11.6) Prothromb Time International Ratio 0.96 (0.85-1.15) Activated Partial Thromboplast Time 28.8 SEC (26.3-35.5) Sodium Level 140 mmol/L (136-145) Potassium Level 4.7 mmol/L (3.5-5.1) Chloride Level 106 mmol/L (101-111) Carbon Dioxide Level 29 mmol/L (21-32) Blood Urea Nitrogen 19 mg/dL (7-18) H Creatinine 1.0 mg/dL (0.5-1.3) Glomerular Filtration Rate Calc 74 mL/min (>90) Random Glucose 96 mg/dL (70-105) Total Calcium 8.9 mg/dL (8.5-10.1) Total Bilirubin 0.8 mg/dL (0.2-1.0) Direct Bilirubin 0.2 mg/dL (0.0-0.3) Aspartate Amino Transf (AST/SGOT) 23 U/L (10-37) Alanine Aminotransferase (ALT/SGPT) 15 U/L (12-78) Alkaline Phosphatase 83 U/L (50-136) Troponin I High Sensitivity 19 ng/L (4-75) Total Protein 5.9 g/dL (6.0-8.3) L Albumin 2.9 g/dL (3.5-5.0) L Procalcitonin < 0.05 ng/mL (0.05-0.5) L Urine Color DARK-ORANGE (YELLOW) Urine Appearance CLOUDY (CLEAR) H Urine pH 6.5 (5.0-8.0) Urine Specific [place] 1.027 (1.001-1.031) Urine Protein 100 mg/dL (NEGATIVE) H Urine Glucose (UA) NEGATIVE mg/dL (NEGATIVE) Urine Ketones NEGATIVE mg/dL (NEGATIVE) Urine Occult Blood LARGE (NEGATIVE) H Urine Nitrate 2+ (NEGATIVE) H Urine Bilirubin 2 mg/dL (NEGATIVE) H Urine Urobilinogen >=8.0 mg/dL (0.2-1.0) H Urine Leukocyte Esterase 25 Enoch/uL (NEGATIVE) H Urine RBC Full Field /HPF (0-1) H Urine WBC 11-25 /HPF (0-1) H Urine Amorphous Crystals (Auto) Few /LPF (None Seen) H Urine Bacteria Many /HPF (None Seen) H Lactic Acid Level 1.2 mmol/L (0.8-2.5) Labs Reviewed?: Yes MDM MDM: Differential diagnosis: Hematuria, chronic indwelling Robbins, BPH Patient is a an 84-year-old male coming in to be evaluated for hematuria. Per patient this has been ongoing since earlier today. Patient does have an indwelling Robbins. Throughout ER visit patient Robbins was replaced and bladder was rinsed multiple clots were removed. Hematuria improved. Patient will be discharged with a diagnosis of chronic indwelling Robbins I advised patient and fa kamini member appropriate follow up with urologist. Patient will be discharged in stable condition and he states that he feels better now that he is able to urinate. Bladder scan was performed at the end before discharge and bladder was empty. ED Course Orders Procedure Category Date Status Time 12 Lead Ekg Tracing- EKG 10/20/24 Complete Technical 15:20 Basic Metabolic Panel LAB 10/20/24 Complete 15:20 Cbc With Differential LAB 10/20/24 Complete 15:20 Hepatic Function Panel LAB 10/20/24 Complete 15:20 Procalcitonin LAB 10/20/24 Complete 15:20 Pt And Ptt LAB 10/20/24 Complete 15:20 Troponin I High LAB 10/20/24 Complete Sensitivity 15:20 Urinalysis LAB 10/20/24 Complete W/Microscopic 15:20 Ct Abdomen/Pelvis W/O CT 10/20/24 Resulted Contrast 15:30 Ondansetron Odt 4mg PHA 10/20/24 Complete Tab (Zofran 4mg Odt) 16:00 Acetaminophen-Codeine PHA 10/20/24 Complete Elixer (Tylenol-Co 16:00 Lactic Acid (Removed) LAB 10/20/24 Complete 16:52 Culture Urine LIANA 10/20/24 In Process 17:00 Tamsulosin Hcl PHA 10/20/24 Complete (Flomax) 19:30 Current Medications Medications (Trade) Dose Ordered Sig/Zackery Route PRN Reason Start Time Stop Time Status Last Admin Dose Admin Acetaminophen/ Codeine Phosphate (TYLenol-coDEINE (120/12MG 5ML) ELIXIR) 5 ml ONCE ONCE PO 10/20/24 16:00 10/20/24 16:01 DC 10/20/24 16:02 Ondansetron HCl (zoFRAN 4MG ODT) 4 mg ONCE ONCE SL 10/20/24 16:00 10/20/24 16:01 DC 10/20/24 16:02 Tamsulosin HCl (FloMAX) 0.8 mg ONCE ONCE PO 10/20/24 19:30 10/20/24 19:31 DC 10/20/24 19:22 Vital Signs Date Time Temp Pulse Resp B/P (MAP) Pulse Ox O2 Delivery O2 Flow Rate FiO2 10/20/24 21:21 53 18 121/58 96 Room Air* 0 10/20/24 20:08 50 18 114/59 96 Room Air* 0 10/20/24 18:29 52 16 101/38 95 Room Air* 0 10/20/24 16:28 52 16 109/62 95 Room Air* 0 10/20/24 14:20 98.4 54 17 113/66 98 Room Air 0 DX & DISP Disposition: Discharge Departure Impression: Primary Impression: UTI (urinary tract infection) Additional Impression: Chronic indwelling Robbins catheter Condition: Stable Scripts Acetaminophen (Acetaminophen ER) 650 Mg Tablet.er 650 MG PO q8 for 5 Days, #30 TAB Prov: SOHAM DOTY MD 10/20/24 Additional Instructions: FOLLOW-UP WITH PRIMARY CARE PROVIDER IN 1 TO 2 DAYS. TAKE MEDICATIONS DIRECTED HERE IN THE EMERGENCY ROOM. OKAY TO CONTINUE HOME MEDICATIONS UNLESS OTHERWISE DISCUSSED DURING YOUR VISIT IN THE EMERGENCY ROOM TODAY. RETURN TO YOUR NEAREST EMERGENCY ROOM IF SYMPTOMS WORSEN OR IF THERE IS NO IMPROVEMENT. CALL 911 IF YOU NEED IMMEDIATE ASSISTANCE. TAKE TYLENOL [id number] NEEDED AND IF NO CONTRAINDICATIONS ARE PRESENT. INCREASE ORAL HYDRATION. A WOUND CULTURE OR URINE CULTURE WAS ORDERED HERE IN THE EMERGENCY ROOM DEPARTMENT PLEASE FOLLOW-UP WITH PRIMARY CARE PROVIDER AND ADVISE THEM TO GET REPEAT PORTS FROM OUR FACILITY. IF YOU HAD ANY PATRICIO WRAP/SPLINTS THAT WERE APPLIED HERE, PLEASE DO NOT REMOVE THEM UNTIL YOU SEE YOUR PRIMARY CARE OR SPECIALTY. Referrals: Referrals: AFRICA BATRES MD (PCP) JASVIR TSE MD Time of Disposition: 22:24 MELITON ALBERTO MD Oct 20, 2024 18:57 SOHAM DOTY MD Oct 20, 2024 22:26
--- NOTE | 2024-10-20 19:17 | NUR ---
REPORT ENDORSED TO VAISHALI YEUNG. WAS INFORMED ALONG W/PT ABOUT POSSIBLE TRANSFER FOR UROLOGICAL SERVICES
[2024-10-20] MEDS: tamSULOsin HCL 0.4 MG CAP.ER.24H PO ONE (19:22)
--- NOTE | 2024-10-20 22:22 | NUR ---
BLADDER SCAN COMPLETED AT THIS TIME. REVEALED 20 ML OF URINE. GOMEZ DRAINING YELLOW/ORANGE TINGED URINE AT THIS TIME.
[2024-10-20] MEDS ORDERED: ACET-2893 PO (22:26)
[2024-10-20] MEDS ORDERED: CEPH500B PO (22:56)
[2024-10-20 22:59] VITALS: BP 124/58; PULSE 51; RESP 18; O2SAT 96
--- NOTE | 2024-10-20 23:25 | NUR ---
200 mL or urine drained from manning bag at this time. Instructions provided to both patient and patient daughter regarding manning care. Pt and Pt daughter both verbalized understanding.
== END 2024-10-20 23:32 | disposition home or self-care (01) ==
LOC: EDH 14:18
DX: N39.0 Urinary tract infection, site not specified (principal); E11.9 Type 2 diabetes mellitus without complications; E78.00 Pure hypercholesterolemia, unspecified; I10 Essential (primary) hypertension; I25.10 Atherosclerotic heart disease of native coronary artery without angina pectoris; Z79.82 Long term (current) use of aspirin; Z79.899 Other long term (current) drug therapy; Z88.5 Allergy status to narcotic agent; Z95.1 Presence of aortocoronary bypass graft
CPT/HCPCS: 36415; 51702; 74176; 80048; 80076; 81001; 83605; 84145; 84484; 85025; 85610; 85730; 87086; 93005; 99285